=== PATIENT | female | born 1935 | race Caucasian/White ===

== ENCOUNTER 2020-03-04 13:22 | Outpatient (REF) | payer MEDICARE, SELFPAY ==
--- NOTE | 2020-03-04 | MM_ITS ---
EXAMINATION: MM SCREENING DIGITAL BREAST TOMOSYNTHESIS, LEFT CLINICAL INFORMATION: Remote history right mastectomy for breast cancer 1998. Due for yearly. COMPARISON: Mammography: 02/10/2019, 02/04/2018, 02/02/2017 TECHNIQUE: Digital breast tomosynthesis is performed in both the craniocaudal and mediolateral oblique views along with computer-aided detection (CAD). Synthesized 2D images are generated from the tomosynthesis. FINDINGS: There are scattered areas of fibroglandular density (ACR BI-RADS breast composition Category b). There are no significant masses, abnormal calcifications, or other abnormalities. There is no interval mass or architectural abnormality. No developing density or abnormal calcifications. No significant changes from prior studies. MM/MM tomosynthesis screening LT IMPRESSION: No mammographic evidence of malignancy. ASSESSMENT: BI-RADS 1: Negative RECOMMENDATION: Routine annual mammography screening. This patient's information was entered into a reminder system with a target due date for their next mammogram.
== END 2020-03-04 13:23 | disposition home or self-care (01) ==
LOC: HO.MAMMO 13:22
PROVIDERS: PCP Internal Medicine; Visit Provider Internal Medicine
DX: Z12.31 Encounter for screening mammogram for malignant neoplasm of breast (principal)
CPT/HCPCS: 77067

== ENCOUNTER 2020-03-08 08:09 | Outpatient (REF) | payer MEDICARE, SELFPAY ==
[2020-03-08 08:56] LABS: MANUAL DIFF FLAG NO
[2020-03-08 09:07] LABS: Basophils Percent Auto 0.5 % (0-2); Eosinophils Absolute Auto 0.1 X10*3/uL (0.0-0.4); Eosinophils Percent Auto 0.8 % (0-4); Hematocrit 44.5 % (37-47); Imm Gran Abs Auto 0.02 X10*3/uL (0.00-0.03); Imm Gran Pct Auto 0.3 % (0.0-0.4); Lymphocytes Absolute Auto 1.7 X10*3/uL (1.2-4.9); Lymphocytes Percent Auto 26.3 % (20-40); Mean Corpuscular HGB Conc 33.7 g/dl (31.0-35.0); Mean Corpuscular Volume 94.9 fL (80-98); Mean Platelet Volume 9.5 fL (9.4-12.3); Monocytes Absolute Auto 0.5 X10*3/uL (0.1-1.2); Monocytes Percent Auto 7.4 % (2-11); Neutrophils Absolute Auto 4.3 X10*3/uL (2.0-8.3); Neutrophils Percent Auto 64.7 % (45-73); Platelet Count 337 X10*3/uL (160-400); Red Blood Count 4.69 X10*6/uL (4.20-5.50); Red Cell Distribution Width 12.7 % (11.0-16.0); White Blood Count 6.6 X10*3/uL (4.8-10.8)
[2020-03-08 09:41] LABS: Alanine Aminotransferase 13 U/L (0-31); Albumin Level 4.4 g/dL (3.5-5.0); Alkaline Phosphatase 60 U/L (39-117); Anion Gap 11 (12-20); Aspartate Amino Transferase 17 U/L (5-31); Bilirubin Total 0.6 mg/dL (0.0-1.0); Blood Urea Nitrogen 7 mg/dL (9-16); Calcium 8.9 mg/dL (8.4-10.2); Carbon Dioxide 29 mmol/L (22-29); Chloride 98 mmol/L (96-108); Cholesterol 161 mg/dL; Estimated Glomerular Filt Rate > 60; Glucose Random 101 mg/dL (60-115); HDL Cholesterol 59 mg/dL; LDL Cholesterol Calculated 86 mg/dl; Potassium 4.5 mmol/l (3.3-5.1); Sodium 133 mmol/L (135-145); Total Protein 7.1 g/dL (6.5-8.0); Triglycerides 83 mg/dL
== END 2020-03-08 08:10 | disposition home or self-care (01) ==
LOC: HO.LAB 08:09
PROVIDERS: PCP Internal Medicine; Visit Provider Internal Medicine
DX: E78.00 Pure hypercholesterolemia, unspecified (principal); I10 Essential (primary) hypertension
CPT/HCPCS: 36415; 80053; 80061; 85025

== ENCOUNTER 2020-08-17 10:14 | Outpatient (REF) | payer MEDICARE, SELFPAY ==
[2020-08-17 11:22] LABS: MANUAL DIFF FLAG NO
[2020-08-17 11:54] LABS: Basophils Percent Auto 0.4 % (0-2); Eosinophils Percent Auto 0.2 % (0-4); Hematocrit 43.4 % (37-47); Hemoglobin 14.7 g/dl (12.0-16.0); Imm Gran Abs Auto 0.02 X10*3/uL (0.00-0.03); Imm Gran Pct Auto 0.2 % (0.0-0.4); Lymphocytes Absolute Auto 1.6 X10*3/uL (1.2-4.9); Lymphocytes Percent Auto 19.3 % (20-40); Mean Corpuscular HGB Conc 33.9 g/dl (31.0-35.0); Mean Corpuscular Volume 94.3 fL (80-98); Mean Platelet Volume 9.6 fL (9.4-12.3); Monocytes Absolute Auto 0.5 X10*3/uL (0.1-1.2); Monocytes Percent Auto 6.1 % (2-11); Neutrophils Absolute Auto 6.1 X10*3/uL (2.0-8.3); Neutrophils Percent Auto 73.8 % (45-73); Platelet Count 329 X10*3/uL (160-400); White Blood Count 8.2 X10*3/uL (4.8-10.8)
[2020-08-17 12:18] LABS: Alanine Aminotransferase 13 U/L (0-31); Albumin Level 4.3 g/dL (3.5-5.0); Alkaline Phosphatase 56 U/L (39-117); Anion Gap 12 (12-20); Aspartate Amino Transferase 18 U/L (5-31); Bilirubin Total 0.8 mg/dL (0.0-1.0); Blood Urea Nitrogen 8 mg/dL (9-16); Calcium 9.2 mg/dL (8.4-10.2); Carbon Dioxide 25 mmol/L (22-29); Chloride 101 mmol/L (96-108); Cholesterol 149 mg/dL; Estimated Glomerular Filt Rate > 60; Glucose Random 97 mg/dL (60-115); HDL Cholesterol 60 mg/dL; LDL Cholesterol Calculated 77 mg/dl; Potassium 4.3 mmol/L (3.3-5.1); Sodium 134 mmol/L (135-145); Total Protein 6.8 g/dL (6.5-8.0); Triglycerides 60 mg/dL
== END 2020-08-17 10:15 | disposition home or self-care (01) ==
LOC: HO.LAB 10:14
PROVIDERS: PCP Internal Medicine; Visit Provider Internal Medicine
DX: E78.00 Pure hypercholesterolemia, unspecified (principal); I10 Essential (primary) hypertension; Z85.3 Personal history of malignant neoplasm of breast; Z86.010 Personal history of colon polyps
CPT/HCPCS: 36415; 80053; 80061; 85025

== ENCOUNTER 2021-03-07 11:44 | Outpatient (REF) | payer MEDICARE, SELFPAY ==
--- NOTE | ~2021-03-07 | MM_ITS ---
EXAMINATION: MM SCREENING DIGITAL BREAST TOMOSYNTHESIS, LEFT CLINICAL INFORMATION: Due for yearly. Prior history remote right mastectomy for breast cancer, 1998. COMPARISON: Mammography: 03/04/2020, 02/10/2019, 02/04/2018 TECHNIQUE: Digital breast tomosynthesis is performed in both the craniocaudal and mediolateral oblique views along with computer-aided detection (CAD). Synthesized 2D images are generated from the tomosynthesis. FINDINGS: There are scattered areas of fibroglandular density (ACR BI-RADS breast composition Category b). There are no significant masses, abnormal calcifications, or other abnormalities. Parenchymal pattern is similar to prior exams. There is a small oval circumscribed nodule again seen periareolar 3:00 left breast. No developing density. Skin contours are smooth. MM/MM tomosynthesis screening LT IMPRESSION: No mammographic evidence of malignancy. ASSESSMENT: BI-RADS 2: Benign RECOMMENDATION: Routine annual mammography screening. This patient's information was entered into a reminder system with a target due date for their next mammogram.
== END 2021-03-07 11:45 | disposition home or self-care (01) ==
LOC: HO.MAMMO 11:44
PROVIDERS: Visit Provider Internal Medicine
DX: Z12.31 Encounter for screening mammogram for malignant neoplasm of breast (principal)
CPT/HCPCS: 77063; 77067

== ENCOUNTER 2021-03-17 11:02 | Outpatient (REF) | payer MEDICARE, SELFPAY ==
[2021-03-17 11:29] LABS: MANUAL DIFF FLAG NO
[2021-03-17 11:55] LABS: Basophils Percent Auto 0.4 % (0-2); Eosinophils Percent Auto 0.4 % (0-4); Hematocrit 43.9 % (37.0-47.0); Hemoglobin 14.8 g/dl (12.0-16.0); Imm Gran Abs Auto 0.02 X10*3/uL (0.00-0.03); Imm Gran Pct Auto 0.3 % (0.0-0.4); Lymphocytes Absolute Auto 1.8 X10*3/uL (1.2-4.9); Mean Corpuscular HGB Conc 33.7 g/dl (31.0-35.0); Mean Corpuscular Hemoglobin 32.2 pg (27.0-33.0); Mean Corpuscular Volume 95.4 fL (80.0-98.0); Mean Platelet Volume 9.8 fL (9.4-12.3); Monocytes Absolute Auto 0.5 X10*3/uL (0.1-1.2); Neutrophils Absolute Auto 5.2 x10*3/uL (2.0-8.3); Neutrophils Percent Auto 67.9 % (45-73); Platelet Count 294 X10*3/uL (160-400); Red Cell Distribution Width 12.9 % (11.0-16.0); White Blood Count 7.6 X10*3/uL (4.8-10.8)
[2021-03-17 12:40] LABS: Alanine Aminotransferase 11 U/L (0-31); Albumin Level 4.3 g/dL (3.5-5.0); Alkaline Phosphatase 57 U/L (39-117); Anion Gap 11 (12-20); Aspartate Amino Transferase 17 U/L (5-31); Bilirubin Total 0.8 mg/dL (0.0-1.0); Blood Urea Nitrogen 10 mg/dL (9-16); Calcium 9.4 mg/dL (8.4-10.2); Carbon Dioxide 25 mmol/L (22-29); Chloride 101 mmol/L (96-108); Cholesterol 164 mg/dL; Estimated Glomerular Filt Rate > 60; Glucose Random 97 mg/dL (60-115); HDL Cholesterol 59 mg/dL; LDL Cholesterol Calculated 91 mg/dl; Potassium 4.3 mmol/L (3.3-5.1); Sodium 133 mmol/L (135-145); Total Protein 7.2 g/dL (6.5-8.0); Triglycerides 74 mg/dL
== END 2021-03-17 11:03 | disposition home or self-care (01) ==
LOC: HO.LAB 11:02
PROVIDERS: PCP Internal Medicine; Visit Provider Internal Medicine
DX: E78.00 Pure hypercholesterolemia, unspecified (principal); I10 Essential (primary) hypertension; Z85.3 Personal history of malignant neoplasm of breast; Z86.010 Personal history of colon polyps
CPT/HCPCS: 36415; 80053; 80061; 85025

== ENCOUNTER → 2021-05-31 09:59 | Outpatient (BNVA) | payer MEDICARE, SELFPAY | DX: N32.81 Overactive bladder (principal) | CPT/HCPCS: 51798; 99202 ==

== ENCOUNTER 2021-06-13 10:07 | Outpatient (REF) | payer MEDICARE, SELFPAY ==
[2021-06-13 10:30] LABS: MANUAL DIFF FLAG NO
[2021-06-13 11:07] LABS: Basophils Absolute Auto 0.1 X10*3/uL (0.0-0.2); Basophils Percent Auto 0.6 % (0-2); Eosinophils Absolute Auto 0.1 X10*3/uL (0.0-0.4); Eosinophils Percent Auto 0.9 % (0-4); Hematocrit 41.2 % (37.0-47.0); Hemoglobin 13.9 g/dl (12.0-16.0); Imm Gran Abs Auto 0.03 X10*3/uL (0.00-0.03); Imm Gran Pct Auto 0.3 % (0.0-0.4); Lymphocytes Absolute Auto 1.4 X10*3/uL (1.2-4.9); Lymphocytes Percent Auto 15.1 % (20-40); Mean Corpuscular HGB Conc 33.7 g/dl (31.0-35.0); Mean Corpuscular Hemoglobin 31.9 pg (27.0-33.0); Mean Corpuscular Volume 94.5 fL (80.0-98.0); Mean Platelet Volume 9.6 fL (9.4-12.3); Monocytes Absolute Auto 0.7 X10*3/uL (0.1-1.2); Monocytes Percent Auto 7.8 % (2-11); Neutrophils Absolute Auto 6.8 x10*3/uL (2.0-8.3); Neutrophils Percent Auto 75.3 % (45-73); Platelet Count 341 X10*3/uL (160-400); Red Blood Count 4.36 X10*6/uL (4.20-5.50); Red Cell Distribution Width 12.8 % (11.0-16.0)
[2021-06-13 12:21] LABS: Alanine Aminotransferase 20 U/L (0-31); Albumin Level 4.4 g/dL (3.5-5.0); Alkaline Phosphatase 69 U/L (39-117); Anion Gap 12 (12-20); Aspartate Amino Transferase 21 U/L (5-31); Bilirubin Total 0.5 mg/dL (0.0-1.0); Blood Urea Nitrogen 8 mg/dL (9-16); Calcium 9.8 mg/dL (8.4-10.2); Carbon Dioxide 26 mmol/L (22-29); Chloride 99 mmol/L (96-108); Cholesterol 163 mg/dL; Estimated Glomerular Filt Rate > 60; Glucose Random 97 mg/dL (60-115); HDL Cholesterol 63 mg/dL; LDL Cholesterol Calculated 88 mg/dl; Potassium 4.4 mmol/L (3.3-5.1); Sodium 133 mmol/L (135-145); Total Protein 6.9 g/dL (6.5-8.0); Triglycerides 62 mg/dL
== END 2021-06-13 10:08 | disposition home or self-care (01) ==
LOC: HO.LAB 10:07
PROVIDERS: PCP Internal Medicine; Visit Provider Internal Medicine
DX: E78.00 Pure hypercholesterolemia, unspecified (principal); I10 Essential (primary) hypertension; Z85.3 Personal history of malignant neoplasm of breast; Z86.010 Personal history of colon polyps
CPT/HCPCS: 36415; 80053; 80061; 85025

== ENCOUNTER 2021-07-04 18:57 | Emergency (ER) | payer MEDICARE, SELFPAY | END 2021-07-04 20:12 | disposition left against medical advice (07) | PROVIDERS: Emergency Provider Emergency Medicine; PCP Internal Medicine | DX: H57.11 Ocular pain, right eye (principal) ==

== ENCOUNTER 2021-10-10 09:55 | Outpatient (REF) | payer MEDICARE, SELFPAY ==
[2021-10-10 11:57] LABS: Alanine Aminotransferase 17 U/L (0-31); Albumin Level 4.3 g/dL (3.5-5.0); Alkaline Phosphatase 78 U/L (39-117); Anion Gap 12 (12-20); Aspartate Amino Transferase 21 U/L (5-31); Bilirubin Total 0.6 mg/dL (0.0-1.0); Blood Urea Nitrogen 8 mg/dL (9-16); Carbon Dioxide 26 mmol/L (22-29); Chloride 94 mmol/L (96-108); Estimated Glomerular Filt Rate > 60; Glucose Random 91 mg/dL (60-115); Sodium 128 mmol/L (135-145)
[2021-10-10 12:18] LABS: Vitamin B12 > 2000 pg/mL (200-900)
[2021-10-10 12:19] LABS: Thyroid Stimulating Hormone 1.02 uIU/mL (0.32-4.0); Vitamin D 25-OH Total 17.6 ng/mL (>30)
== END 2021-10-10 09:56 | disposition home or self-care (01) ==
LOC: HO.LAB 09:55
PROVIDERS: PCP Internal Medicine; Visit Provider Internal Medicine
DX: E87.1 Hypo-osmolality and hyponatremia (principal); M54.50 Low back pain, unspecified; S22.089G Unspecified fracture of T11-T12 vertebra, subsequent encounter for fracture with delayed healing; I10 Essential (primary) hypertension
CPT/HCPCS: 36415; 80053; 82306; 82607; 84443

== ENCOUNTER 2022-01-10 09:45 | Outpatient (REF) | payer MEDICARE, SELFPAY ==
[2022-01-10 11:29] LABS: Alanine Aminotransferase 18 U/L (0-31); Albumin Level 4.2 g/dL (3.5-5.0); Alkaline Phosphatase 67 U/L (39-117); Anion Gap 12 (12-20); Aspartate Amino Transferase 19 U/L (5-31); Bilirubin Total 0.8 mg/dL (0.0-1.0); Blood Urea Nitrogen 12 mg/dL (9-16); Calcium 9.2 mg/dL (8.4-10.2); Carbon Dioxide 25 mmol/L (22-29); Chloride 95 mmol/L (96-108); Estimated Glomerular Filt Rate > 60; Glucose Random 91 mg/dL (60-115); Potassium 4.3 mmol/L (3.3-5.1); Sodium 128 mmol/L (135-145); Total Protein 6.6 g/dL (6.5-8.0)
== END 2022-01-10 09:46 | disposition home or self-care (01) ==
LOC: HO.10HDL 09:45
PROVIDERS: Visit Provider Internal Medicine
DX: I10 Essential (primary) hypertension (principal)
CPT/HCPCS: 36415; 80053

== ENCOUNTER 2022-03-08 12:04 | Outpatient (REF) | payer MEDICARE, SELFPAY ==
--- NOTE | ~2022-03-08 | MM_ITS ---
EXAMINATION: MM SCREENING DIGITAL BREAST TOMOSYNTHESIS, LEFT CLINICAL INFORMATION: Due for yearly. Prior remote right mastectomy for breast cancer, 1998. COMPARISON: Mammography: 03/07/2021, 03/04/2020 02/10/2019, 02/04/2018 02/02/2017, 01/31/2016, 01/25/2015 TECHNIQUE: Digital breast tomosynthesis is performed in both the craniocaudal and mediolateral oblique views along with computer-aided detection (CAD). Synthesized 2D images are generated from the tomosynthesis. Images of the contralateral right mastectomy side were also included. FINDINGS: There are scattered areas of fibroglandular density (ACR BI-RADS breast composition Category b). The left MLO view has nodular asymmetric density anterior upper breast possibly shifting fibroglandular tissue or incompletely compressed fibroglandular tissue. Patient will be recalled for additional imaging. The remainder of the left breast is unremarkable with no developing density or architectural abnormality or abnormal calcifications. The axilla is unremarkable. Additional images obtained right mastectomy site are unremarkable. MM/MM tomosynthesis screening LT IMPRESSION: -Nodular asymmetric density anterior upper breast on MLO view, possibly summation artifact. ASSESSMENT: BI-RADS 0: Incomplete - Need Additional Imaging Evaluation RECOMMENDATION: 1. Additional views of the left breast (spot MLO, spot ML). 2. Targeted ultrasound if warranted after review of the additional views. 3. Radiology department staff will contact the patient for additional imaging. This patient's information was entered into a reminder system with a target due date for their next mammogram.
== END 2022-03-08 12:05 | disposition home or self-care (01) ==
LOC: HO.MAMMO 12:04
PROVIDERS: PCP Internal Medicine; Visit Provider Internal Medicine
DX: Z12.31 Encounter for screening mammogram for malignant neoplasm of breast (principal)
CPT/HCPCS: 77063; 77067

== ENCOUNTER 2022-03-29 14:53 | Outpatient (REF) | payer MEDICARE, SELFPAY ==
--- NOTE | ~2022-03-29 | MM_ITS ---
EXAMINATION: MM DIAGNOSTIC DIGITAL BREAST TOMOSYNTHESIS, LEFT TARGETED LEFT BREAST ULTRASOUND CLINICAL INFORMATION: Status post right breast lumpectomy. Additional views for nodule asymmetric density anterior upper breast on mediolateral oblique view. COMPARISON: Mammography: 03/08/2022 and studies dating back to 01/31/2016. TECHNIQUE: Digital breast tomosynthesis is performed. 2D images are generated from the tomosynthesis. The following views are obtained: Spot compression mediolateral oblique and 90 degree mediolateral view. TARGETED LEFT BREAST ULTRASOUND: FINDINGS: There are scattered areas of fibroglandular density (ACR BI-RADS breast composition Category b). Additional views demonstrate one of the more superior and distal densities to have represented superposition of fibroglandular tissue. There is a circumscribed density which appears to have been present previously measuring approximately 7 x 4 mm in size as well as a couple of sub-3 mm circumscribed densities which appear to have been present previously but it is difficult to say for sure. Targeted left breast ultrasound demonstrated at the 3 o'clock position, approximately 2 cm from the nipple, a mixed hypoechoic and hyperechoic 4 x 4 x 2 mm well-circumscribed structure without distal sound shadowing. The lesion is wider than it is tall. No internal vascularity was present. Recommend a six month follow up left breast mammography and ultrasound for continued surveillance. Results are discussed with the patient at time of visit. MM/MM tomosynthesis added views L IMPRESSION: No specific mammographic or ultrasound findings to suggest malignancy. Recommend a six month follow up study. ASSESSMENT: BI-RADS 3: Probably benign. RECOMMENDATION: Diagnostic mammography in 6 months. This patient's information was entered into a reminder system with a target due date for their next mammogram.
== END 2022-03-29 14:54 | disposition home or self-care (01) ==
LOC: HO.MAMMO 14:53
PROVIDERS: Visit Provider Internal Medicine
DX: R92.2 Inconclusive mammogram (principal)
CPT/HCPCS: 76642; 77061; 77065

== ENCOUNTER 2022-04-24 15:11 | Outpatient (REF) | payer MEDICARE, SELFPAY ==
[2022-04-24 15:25] LABS: MANUAL DIFF FLAG NO
[2022-04-24 15:33] LABS: Basophils Percent Auto 0.4 % (0-2); Hematocrit 40.1 % (37.0-47.0); Hemoglobin 14.1 g/dl (12.0-16.0); Imm Gran Abs Auto 0.03 X10*3/uL (0.00-0.03); Imm Gran Pct Auto 0.3 % (0.0-0.4); Lymphocytes Absolute Auto 1.4 X10*3/uL (1.2-4.9); Lymphocytes Percent Auto 13.3 % (20-40); Mean Corpuscular HGB Conc 35.2 g/dl (31.0-35.0); Mean Corpuscular Hemoglobin 32.7 pg (27.0-33.0); Mean Platelet Volume 9.5 fL (9.4-12.3); Monocytes Absolute Auto 0.6 X10*3/uL (0.1-1.2); Monocytes Percent Auto 5.3 % (2-11); Neutrophils Absolute Auto 8.7 x10*3/uL (2.0-8.3); Neutrophils Percent Auto 80.7 % (45-73); Platelet Count 331 X10*3/uL (160-400); Red Blood Count 4.31 X10*6/uL (4.20-5.50); Red Cell Distribution Width 13.1 % (11.0-16.0); White Blood Count 10.7 X10*3/uL (4.8-10.8)
[2022-04-24 16:13] LABS: Alanine Aminotransferase 12 U/L (0-31); Albumin Level 4.4 g/dL (3.5-5.0); Alkaline Phosphatase 64 U/L (39-117); Anion Gap 14 (12-20); Aspartate Amino Transferase 16 U/L (5-31); Bilirubin Total 0.9 mg/dL (0.0-1.0); Blood Urea Nitrogen 11 mg/dL (9-16); Calcium 9.3 mg/dL (8.4-10.2); Carbon Dioxide 21 mmol/L (22-29); Chloride 97 mmol/L (96-108); Cholesterol 169 mg/dL; Estimated Glomerular Filt Rate > 60; Glucose Random 125 mg/dL (60-115); HDL Cholesterol 56 mg/dL; LDL Cholesterol Calculated 97 mg/dl; Sodium 128 mmol/L (135-145); Total Protein 6.8 g/dL (6.5-8.0); Triglycerides 80 mg/dL
[2022-04-24 16:28] LABS: Thyroid Stimulating Hormone 0.95 uIU/mL (0.32-4.0)
== END 2022-04-24 15:12 | disposition home or self-care (01) ==
LOC: HO.LAB 15:11
PROVIDERS: PCP Internal Medicine; Visit Provider Internal Medicine
DX: E55.9 Vitamin D deficiency, unspecified (principal); E87.1 Hypo-osmolality and hyponatremia; I10 Essential (primary) hypertension
CPT/HCPCS: 36415; 80053; 80061; 82306; 84443; 85025

== ENCOUNTER 2022-05-01 16:43 | Outpatient (REF) | payer MEDICARE, SELFPAY ==
--- NOTE | ~2022-05-01 | XR_ITS ---
EXAMINATION: XR HIP, LEFT CLINICAL INFORMATION: Left hip pain COMPARISON: None TECHNIQUE: Two views of the left hip. FINDINGS: Mild to moderate degenerative changes of the left hip joint with joint space narrowing and tiny osteophytes. No acute fracture or dislocation. 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
--- NOTE | ~2022-05-01 | XR_ITS ---
EXAMINATION: XR chest 2V CLINICAL INFORMATION: Reason for Exam hyponatremia COMPARISON: Chest radiograph 04/30/2006 TECHNIQUE: 2 views of the chest FINDINGS: Clear lungs. No pneumothorax or pleural effusion. Unchanged cardiomediastinal silhouette. Mediastinal clips. XR/XR chest 2V Impression: No acute cardiopulmonary findings.
== END 2022-05-01 16:44 | disposition home or self-care (01) ==
LOC: HO.XRAY 16:43
PROVIDERS: PCP Internal Medicine; Visit Provider Internal Medicine
DX: E87.1 Hypo-osmolality and hyponatremia (principal); M25.512 Pain in left shoulder; Z85.3 Personal history of malignant neoplasm of breast
CPT/HCPCS: 71046; 73502

== ENCOUNTER 2022-06-02 14:46 | Outpatient (REF) | payer MEDICARE, SELFPAY | END 2022-06-02 14:47 | disposition home or self-care (01) | LOC: HO.LNP 14:46 | PROVIDERS: PCP Internal Medicine; Visit Provider Nurse Practitioner Family | DX: N32.81 Overactive bladder (principal); R33.9 Retention of urine, unspecified | CPT/HCPCS: 51798; 87086; 87088; 87186; 99212 ==

== ENCOUNTER 2022-06-15 14:06 | Outpatient (REF) | payer MEDICARE, SELFPAY ==
--- NOTE | ~2022-06-15 | US_ITS ---
EXAMINATION: US RETROPERITONEAL COMPLETE (RENAL) CLINICAL INFORMATION: Overactive bladder. COMPARISON: None available. TECHNIQUE: Real-time imaging of the kidneys and bladder. FINDINGS: RIGHT KIDNEY: 10.1 x 3.2 x 4.5 cm (SAG x AP x TRV). The kidney is normal in size, contour, and echogenicity. Renal cortical thickness is normal. No calculi or focal parenchymal lesions. No hydronephrosis. LEFT KIDNEY: 10.5 x 4.4 x 3.7 cm (SAG x AP x TRV). The kidney is normal in size, contour, and echogenicity. Renal cortical thickness is normal. No calculi or focal parenchymal lesions. No hydronephrosis. BLADDER: Bladder was well distended with minimal trabeculation suggested. Bilateral ureteral jets are not demonstrated. Prevoid bladder volume is 323 mL. Postvoid bladder volume is 184 mL. US/US retroperitoneal comp IMPRESSION: Large postvoid residual. Normal-appearing kidneys.
== END 2022-06-15 14:07 | disposition home or self-care (01) ==
LOC: HO.US 14:06
PROVIDERS: PCP Internal Medicine; Visit Provider Nurse Practitioner Family
DX: N32.81 Overactive bladder (principal); R33.9 Retention of urine, unspecified
CPT/HCPCS: 76770

== ENCOUNTER 2022-07-17 14:34 | Outpatient (REF) | payer MEDICARE, SELFPAY ==
[2022-07-17 15:56] LABS: Alanine Aminotransferase 11 U/L (0-31); Albumin Level 4.1 g/dL (3.5-5.0); Alkaline Phosphatase 93 U/L (39-117); Anion Gap 12 (12-20); Aspartate Amino Transferase 16 U/L (5-31); Bilirubin Total 0.5 mg/dL (0.0-1.0); Blood Urea Nitrogen 16 mg/dL (9-16); Calcium 9.1 mg/dL (8.4-10.2); Carbon Dioxide 28 mmol/L (22-29); Chloride 97 mmol/L (96-108); Estimated Glomerular Filt Rate > 60; Glucose Random 84 mg/dL (60-115); Potassium 4.6 mmol/L (3.3-5.1); Sodium 132 mmol/L (135-145); Total Protein 6.5 g/dL (6.5-8.0)
== END 2022-07-17 14:35 | disposition home or self-care (01) ==
LOC: HO.LAB 14:34
PROVIDERS: PCP Internal Medicine; Visit Provider Internal Medicine
DX: Z00.01 Encounter for general adult medical examination with abnormal findings (principal); E87.1 Hypo-osmolality and hyponatremia; I10 Essential (primary) hypertension; M25.552 Pain in left hip
CPT/HCPCS: 36415; 80053

== ENCOUNTER 2022-10-03 15:40 | Outpatient (REF) | payer MEDICARE, SELFPAY ==
[2022-10-03 15:51] LABS: MANUAL DIFF FLAG NO
[2022-10-03 17:59] LABS: Basophils Absolute Auto 0.1 X10*3/uL (0.0-0.2); Basophils Percent Auto 0.5 % (0-2); Eosinophils Absolute Auto 0.1 X10*3/uL (0.0-0.4); Eosinophils Percent Auto 0.7 % (0-4); Hematocrit 39.7 % (37.0-47.0); Hemoglobin 13.5 g/dl (12.0-16.0); Imm Gran Abs Auto 0.03 X10*3/uL (0.00-0.03); Imm Gran Pct Auto 0.3 % (0.0-0.4); Lymphocytes Absolute Auto 2.3 X10*3/uL (1.2-4.9); Lymphocytes Percent Auto 23.8 % (20-40); Mean Corpuscular Hemoglobin 33.3 pg (27.0-33.0); Mean Platelet Volume 10.4 fL (9.4-12.3); Monocytes Absolute Auto 0.9 X10*3/uL (0.1-1.2); Monocytes Percent Auto 9.6 % (2-11); Neutrophils Absolute Auto 6.2 x10*3/uL (2.0-8.3); Neutrophils Percent Auto 65.1 % (45-73); Platelet Count 343 X10*3/uL (160-400); Red Blood Count 4.05 X10*6/uL (4.20-5.50); Red Cell Distribution Width 12.7 % (11.0-16.0); White Blood Count 9.5 X10*3/uL (4.8-10.8)
[2022-10-03 18:29] LABS: Alanine Aminotransferase 13 U/L (0-31); Albumin Level 4.2 g/dL (3.5-5.0); Alkaline Phosphatase 73 U/L (39-117); Anion Gap 14 (12-20); Aspartate Amino Transferase 19 U/L (5-31); Bilirubin Total 0.4 mg/dL (0.0-1.0); Blood Urea Nitrogen 14 mg/dL (9-16); Calcium 9.4 mg/dL (8.4-10.2); Carbon Dioxide 24 mmol/L (22-29); Chloride 98 mmol/L (96-108); Estimated Glomerular Filt Rate > 60; Glucose Random 95 mg/dL (60-115); Sodium 132 mmol/L (135-145); Total Protein 7.2 g/dL (6.5-8.0)
[2022-10-03 18:44] LABS: Thyroid Stimulating Hormone 1.28 uIU/mL (0.32-4.0)
[2022-10-03 19:19] LABS: Vitamin B12 > 2000 pg/mL (200-900)
== END 2022-10-03 15:41 | disposition home or self-care (01) ==
LOC: HO.LAB 15:40
PROVIDERS: PCP Internal Medicine; Visit Provider Internal Medicine
DX: E87.1 Hypo-osmolality and hyponatremia (principal); F32.9 Major depressive disorder, single episode, unspecified; L03.032 Cellulitis of left toe; R23.3 Spontaneous ecchymoses
CPT/HCPCS: 36415; 80053; 82607; 82746; 84443; 85025

== ENCOUNTER 2022-11-21 14:24 | Outpatient (REF) | payer MEDICARE, SELFPAY ==
--- NOTE | ~2022-11-21 | MM_ITS ---
EXAMINATION: MM DIAGNOSTIC DIGITAL BREAST TOMOSYNTHESIS, LEFT US BREAST LIMITED, LEFT MAMMOGRAPHY: CLINICAL INFORMATION: 6 month follow-up mammography and ultrasound for probably benign complicated cyst left breast approximately 3:00 axis, 2 cm from the nipple. The patient has undergone prior mastectomy right breast with TRAM flap repair. COMPARISON: Mammography: Mammography dated 03/29/2022, 03/08/2022, and 03/07/2021. Ultrasound dated 03/29/2022. TECHNIQUE: Digital LEFT breast tomosynthesis is performed in both the craniocaudal and mediolateral oblique views along with computer-aided detection (CAD). Synthesized 2D images are generated from the tomosynthesis. FINDINGS: There are scattered areas of fibroglandular density (ACR BI-RADS breast composition Category b). The previously seen focal asymmetry/circumscribed oval nodule at the 3:00 position within the left breast, mid to anterior depth, is no longer visualized on today's examination. There are mild left breast vascular calcifications. There are no suspicious calcifications. There are no masses or developing regions of architectural distortion. The parenchymal pattern is unchanged from prior exams. ULTRASOUND: CLINICAL INFORMATION: Follow-up complicated cyst left breast 3:00 axis, 2 cm from the nipple. COMPARISON: Ultrasound dated 03/29/2022 left breast. TECHNIQUE: Targeted sonographic evaluation was performed using a high frequency linear transducer. Attention was given specifically to the lateral left breast. Selected archived documentation. FINDINGS: LEFT BREAST: The previously seen 4 mm somewhat superficial oval complicated cyst versus mass in the left breast at the 3:00 axis, 2 cm from the nipple, is no longer definitively seen. It appears to have resolved. At the same region, somewhat deeper within dense Petey's ligaments is a probable dirty cyst measuring 2 x 2 x 3 mm, also probably benign. Recommend six-month interval follow-up targeted left breast ultrasound in the lateral region to ensure stability. MM/MM tomosynthesis diagnostic LT IMPRESSION: 1. Previously seen oval nodule 3:00 position left breast appears to have resolved. 2. Visualization of a slightly deeper 2 x 3 x 2 mm nodule at 3:00 position left breast, 2 cm from the nipple, probably benign. Six-month interval follow-up targeted left breast ultrasound recommended as discussed above, in March when she is due for yearly lateral left screening. 3. No findings suspicious for malignancy in either breast. OVERALL ASSESSMENT: Mammography: BI-RADS 3 - Probably benign finding(s) - 6 month follow-up suggested Ultrasound: BI-RADS 3 - Probably benign finding(s) - 6 month follow-up suggested RECOMMENDATION: 6 Month F/U Results were provided to the patient at time of visit by the technologist. This patient's information was entered into a reminder system with a target due date for their next mammogram.
== END 2022-11-21 14:25 | disposition home or self-care (01) ==
LOC: HO.MAMMO 14:24
PROVIDERS: PCP Internal Medicine; Visit Provider Internal Medicine
DX: R92.2 Inconclusive mammogram (principal)
CPT/HCPCS: 76642; 77061; 77065

== ENCOUNTER → 2022-11-21 15:00 | Outpatient (BNV) | payer MEDICARE, SELFPAY | PROVIDERS: PCP Internal Medicine; Visit Provider Radiology Diagnostic Radiology | DX: R92.2 Inconclusive mammogram (principal) | CPT/HCPCS: 76642; 77061; 77065 ==

== ENCOUNTER 2023-01-12 12:01 | Emergency (ER) | payer MEDICARE, SELFPAY ==
--- NOTE | ~2023-01-12 | XR_ITS ---
EXAMINATION: XR RIBS, LEFT CLINICAL INFORMATION: Fall. Pain. COMPARISON: None available. TECHNIQUE: Frontal view of chest 3 views of the left ribs were obtained. FINDINGS: Lungs are clear. No consolidation, pneumothorax, or pleural effusion. The cardiomediastinal silhouette and pulmonary vasculature are normal. Old healed fracture with residual deformity of the posterior left seventh and eighth ribs. No acute displaced fracture. XR/XR ribs LT min 3V w CXR1V IMPRESSION: 1. No acute abnormality of chest. 2. Old healed fracture of the posterior left seventh and eighth ribs.
--- NOTE | ~2023-01-12 | XR_ITS ---
EXAMINATION: XR THORACIC SPINE CLINICAL INFORMATION: Tenderness after fall COMPARISON: None available. TECHNIQUE: 3 views of the thoracic spine were obtained. FINDINGS: Diffuse demineralization. S-shaped thoracolumbar scoliosis. Mild kyphosis. Multilevel degenerative changes. Severe compression deformity, likely L1. Left base atelectasis. Aortic calcifications. XR/XR thoracic spine 3V IMPRESSION: Severe compression fracture, likely L1. Correlate with point tenderness.
--- NOTE | ~2023-01-12 | XR_ITS ---
EXAMINATION: XR LUMBOSACRAL SPINE CLINICAL INFORMATION: Fall. COMPARISON: Thoracic spine x-ray from the same day TECHNIQUE: Three views of the lumbosacral spine. FINDINGS: There is curvature of the lower thoracic and upper lumbar spine to the left and lumbar sacral spine to the right. There is a severe compression fraction of the superior endplate of the L1 vertebral body that appears recent. No other fracture. There may be mild disc space narrowing at T12-L1. Disc spaces are otherwise normal. Lower lumbar spine facet arthritis. Atherosclerotic. XR/XR lumbar spine 2-3V IMPRESSION: Recent appearing L1 vertebral body compression fracture. Scoliosis and degenerative changes.
[2023-01-12 12:12] VITALS: BP 150/84; BP 167/87; PULSE 65; PULSE 68; RESP 18; TEMP 36.6; O2SAT 96; O2SAT 98; BMI 29.5
--- NOTE | 2023-01-12 12:41 | ED.GENADULT ---
HPI - General Adult General Chief complaint: Fall Stated complaint: FALL WITH BACK PAIN Time Seen by Provider: 01/12/23 12:38 Source: patient, EMS and RN notes reviewed Mode of arrival: EMS Limitations: no limitations History of Present Illness HPI narrative: Patient is an 87-year-old female presents to the emergency department with complaint of thoracic back pain after a trip and fall earlier today. Patient reports that her she became stuck on the carpet, causing her to fall. States that when she fell her back landed against the corner of a cabinet. She denies head strike or loss of consciousness. States that she 1st called her neighbor who then came over and called 911. She denies any other pain or injuries. She did not take any medications prior to arrival. MD complaint: back pain Onset (ago): hour(s) Location: back Radiation: non-radiation Severity: severe Quality: sharp Pain Consistency: constant Relieving factors: rest Exacerbating factors: movement and other (palpation) Associated symptoms: denies other symptoms Treatments prior to arrival: none Related Data Home Medications Medication Instructions Recorded Confirmed cholecalciferol (vitamin D3) 1,250 1,250 mcg PO QWEEK 06/02/22 01/12/23 mcg (50,000 unit) capsule lidocaine 5 % topical patch 1 patch topical DAILY 06/02/22 01/12/23 metoprolol succinate 25 mg 25 mg PO DAILY 06/02/22 01/12/23 tablet,extended release 24 hr pravastatin 40 mg tablet 40 mg PO DAILY 06/02/22 01/12/23 lisinopril 5 mg tablet 5 mg PO DAILY 01/12/23 01/12/23 sertraline 25 mg tablet 25 mg PO DAILY 01/12/23 01/12/23 Previous Rx's Medication Instructions Recorded oxybutynin chloride 5 mg 5 mg PO DAILY 90 days #90 tabs 05/31/21 tablet,extended release 24 hr Allergies Allergy/AdvReac Type Severity Reaction Status Date / Time No Known Allergies Allergy Verified 01/12/23 12:17 [No Known Allergies*] bee sting Allergy Unknown swelling Uncoded 06/04/22 20:49 Review of Systems Review of Systems: As per HPI Yes all other systems are reviewed and are negative Constitutional: Constitutional: Reports as per HPI PMFSH Past Medical History Medical History OAB (overactive bladder) Social History Social History Smoked in Last 30 Days: No Use of substances other than those prescribed or required for medical reasons: No Advance Directives: No Advance Directives Information Provided: Yes Physical Exam ED Vital Signs: Vital Signs - 24 hr 01/13/23 19:18 01/14/23 05:10 Temperature 98.3 F 98.3 F Pulse Rate 61 92 Respiratory Rate 16 18 Blood Pressure 141/74 H 140/69 H Pulse Oximetry 97 93 Oxygen Delivery Method Room Air Room Air BMI result Body Mass Index 29.5 Vital signs have been reviewed and appear to be correct. Blood pressure elevated. Heart rate normal. Respiratory rate normal. Temperature normal. Oxygen saturation normal. Const General: cooperative, healthy appearing and no acute distress Orientation/consciousness: oriented to person, oriented to place, oriented to time and patient oriented x3 Limitations: no limitations HENMT Head: Yes normocephalic and Yes atraumatic Ears: external ears normal General nose exam: Normal external nose present Face and sinus: Yes face symmetric Mouth: oropharynx normal and moist mucous membranes Throat: Yes uvula midline Eyes Pupils: Equal, round and reactive pupils present Neck Neck: Yes normal visual inspection and Yes supple Resp Effort & Inspection: normal respiratory effort and able to speak in complete sentences Auscultation: clear to auscultation bilaterally Cardio Rate: regular rate Rhythm: regular rhythm Heart sounds: S1 normal heart sound present and S2 normal heart sound present GI Palpation (GI): Soft to palpation and nontender Auscultation: normoactive bowel sounds General: Yes no CVA tenderness Back/Spine/Pelvis Back: no CVA tenderness Cervical Spine: normal cervical lordosis, cervical ROM normal, No cervical muscular tenderness, No pain with cervical ROM, No Cervical spine tenderness and No step off deformity Thoracic/Lumbar Spine: thoracic and lumbar spine normal to inspection (no erythema or ecchymosis), pain with thoraco-lumbar ROM, thoraco-lumbar ROM limited with forward flexion (r/t pain), thoracic spinal tenderness at T10, at T11 and at T12 and No lumbar spinal tenderness Pelvis: no pain with anterior-posterior compression and no pain with lateral compression Skin General skin exam: elasticity normal and turgor normal Neuro General: oriented to person, oriented to place, oriented to time, patient oriented x3, moves all extremities, no focal motor deficits and CN's II-XI intact bilaterally Cranial nerves: Yes Equal, round and reactive pupils present Cognition (Neuro): normal cognition Extrem General: Yes full ROM, Yes no pedal edema and Yes no calf tenderness Psych Mental Status: mental status grossly normal Affect: normal affect Thought process: Normal thought process present Course Course Course Narrative: 01/13/2023 0802: Physician observation continues. Patient being followed by Case Management. Reevaluation(s) Reevaluation #1: No complaints from nursing overnight. Vital signs reviewed and stable. Pending case management input after her physical therapy evaluation yesterday. Will continue physician observation pending disposition. Reevaluation #2: Case management met with patient. Patient will be going home with home services. Medications Administered Generic Name Dose Route Start Last Admin Trade Name Freq PRN Reason Stop Dose Admin Acetaminophen 650 mg 01/14/23 10:26 01/14/23 10:59 Acetaminophen 325 Mg Tablet PO 650 mg QID PRN Administration Pain, Mild (Pain Scale 1-3) Lidocaine 1 patch 01/13/23 09:00 01/14/23 09:41 Lidocaine 4 % Patch Adh..Patch TRANSDERMA 1 patch DAILY CHAPARRITA Administration Lisinopril 5 mg 01/13/23 09:00 01/14/23 09:39 Lisinopril 5 Mg Tablet PO 5 mg DAILY CHAPARRITA Administration Protocol Metoprolol Succinate 25 mg 01/13/23 09:00 01/14/23 09:40 Metoprolol Succinate Er 25 Mg Tab.Er.24h PO 25 mg DAILY CHAPARRITA Administration Protocol Oxybutynin Chloride 5 mg 01/13/23 09:00 01/14/23 09:39 Oxybutynin Chloride Er 5 Mg Tab.Er.24 PO 5 mg DAILY CHAPARRITA Administration Pravastatin Sodium 40 mg 01/13/23 09:00 01/14/23 09:40 Pravastatin Sodium 40 Mg Tablet PO 40 mg DAILY CHAPARRITA Administration Sertraline HCl 25 mg 01/13/23 09:00 01/14/23 09:39 Sertraline Hcl 25 Mg Tablet PO 25 mg DAILY CHAPARRITA Administration Discontinued Medications Generic Name Dose Route Start Last Admin Trade Name Freq PRN Reason Stop Dose Admin Acetaminophen 650 mg 01/12/23 12:45 01/12/23 13:57 Acetaminophen 325 Mg Tablet PO 01/12/23 12:46 650 mg ONCE ONE Administration Acetaminophen 650 mg 01/13/23 06:45 01/13/23 06:48 Acetaminophen 325 Mg Tablet PO 01/13/23 06:46 650 mg ONCE ONE Administration Acetaminophen 650 mg 01/13/23 20:39 01/13/23 21:17 Acetaminophen 325 Mg Tablet PO 01/13/23 20:40 650 mg ONCE ONE Administration Acetaminophen 650 mg 01/14/23 04:44 01/14/23 04:50 Acetaminophen 325 Mg Tablet PO 01/14/23 04:45 650 mg ONCE ONE Administration Benzonatate 200 mg 01/13/23 09:48 01/13/23 10:08 Benzonatate 100 Mg Capsule PO 01/13/23 09:49 200 mg ONCE ONE Administration Ibuprofen 600 mg 01/12/23 15:20 01/12/23 18:17 Ibuprofen 600 Mg Tablet PO 01/12/23 15:21 600 mg ONCE ONE Administration Ibuprofen 600 mg 01/13/23 20:39 01/13/23 21:17 Ibuprofen 600 Mg Tablet PO 01/13/23 20:40 600 mg ONCE ONE Administration Lidocaine 1 patch 01/12/23 20:52 01/12/23 21:25 Lidocaine 4 % Patch Adh..Patch TRANSDERMA 01/12/23 20:53 1 patch ONCE ONE Administration Protocol Oxycodone HCl 2.5 mg 01/12/23 20:52 01/12/23 21:25 Oxycodone Hcl Immed Release 5 Mg Tablet PO 01/12/23 20:53 2.5 mg ONCE ONE Administration Medical Decision Making Medical Decision Making MDM Narrative: Patient is an 87-year-old female presents to the emergency department with complaint of thoracic back pain after a trip and fall earlier today. On exam patient is awake, A+Ox3, VS WNL, afebrile, normal neurological exam without focal deficits, physical exam findings as above. Given reported symptoms and physical exam findings, initial differential includes contusion, vertebral fracture, muscle strain. X-ray thoracic spine notable for severe compression fracture, likely L1. My interpretation is in agreement with the radiologist's interpretation. Son at bedside and reporting that patient has a prior T12 fracture from a previous fall. Will obtain lumbar x-rays for additional evaluation. Patient reports pain has improved after Tylenol but still has some pain, will order ibuprofen. Discussed with patient and son that treatment is symptomatic and pain control. Son in agreement that patient may benefit from short-term rehab, will place PT eval and Case Management consult. Patient signed out to DONNA Sosa pending lumbar x-ray. Differential Diagnosis Differential Diagnoses: The differential diagnosis associated with the presentation includes As per MDM. Admission/Observation Consideration of admission/observation: Escalation of care including admission/observation considered Independent Interpretation I performed an independent interpretation of an: Plain X-Ray Interpretation: Severe compression fracture likely L1 on thoracic x-ray Radiology Impression Discussion of test interpretation with radiology: I have reviewed the radiologist's reading. Radiologist Impression: XR/XR thoracic spine 3V IMPRESSION: Severe compression fracture, likely L1. Correlate with point tenderness. Independent Historian Clinical information obtained from an independent historian. History obtained from or confirmed by: Other (son) External Record Review External record reviewed: Inpatient record, Office record and Outpatient record Prescription Management I considered prescription management with: Pain Medication Discharge Plan Discharge Clinical Impression: Fall, Compression fracture of first lumbar vertebra Patient Disposition: Home, Self-Care Instructions: Vertebral Compression Fracture (ED) Additional Instructions: Case management has set up services to come into your home Please follow-up with primary care doctor Take Tylenol for pain Return for any worsening symptom Prescriptions: No Action sertraline 25 mg tablet 25 mg PO DAILY lisinopril 5 mg tablet 5 mg PO DAILY lidocaine 5 % adhesive patch,medicated 1 patch topical DAILY pravastatin 40 mg tablet 40 mg PO DAILY cholecalciferol (vitamin D3) 1,250 mcg (50,000 unit) capsule 1,250 mcg PO QWEEK metoprolol succinate 25 mg tablet extended release 24 hr 25 mg PO DAILY oxybutynin chloride 5 mg tablet extended release 24 hr 5 mg PO DAILY 90 Days Qty: 90 1RF Referrals: Carlyn Lakhani MD [Primary Care Provider] - 1 week
[2023-01-12] MEDS: Acetaminophen 325 MG TABLET 650 MG PO (13:57)
[2023-01-12 16:00] VITALS: BP 142/70; PULSE 65; RESP 16; TEMP 36.7; O2SAT 100
--- NOTE | 2023-01-12 16:16 | MHC.EDTECH ---
Placed bedpan for patient to void. Took bedpan out for patient. Wiped patient pedi area. Placed a bed pad and gave patient a warm blanket.
[2023-01-12 18:00] VITALS: BP 154/73; PULSE 65; RESP 16; TEMP 36.8; O2SAT 98
[2023-01-12] MEDS: Ibuprofen 600 MG TABLET PO (18:17)
--- NOTE | 2023-01-12 20:38 | PC.NURSE ---
RN received notice from EDT that the pt's daughter/bedside visitor is upset as she did not know about the plan for the pt to remain in the ED overnight for PT/CM follow up s/t fall. This RN consulted with DONNA Bragg to ensure that the plan was still in effect and provided information to the provider regarding the daughter's dissatisfaction at this time. DONNA Bragg to bedside to discuss plan with daughter and patient.
[2023-01-12] MEDS: oxyCODONE HCl Immed Release 5 MG TABLET 2.5 MG PO (21:25)
[2023-01-12] MEDS: Lidocaine 4 % Patch ADH..PATCH 1 PATCH TRANSDERMA (21:25)
[2023-01-12 23:18] VITALS: BP 121/54; PULSE 59; RESP 16; TEMP 36.7; O2SAT 97
--- NOTE | 2023-01-12 23:19 | MHC.EDTECH ---
Patient just came to overflow from the main ed ,Patient got moved to bed ,vitals taken ,patient belonging list done ,This pct offer Pt food and drinks ,pt said she was not hungry ,but would like something to drink ,[place] kavita given ,pure wick in place and bed alarm ,tissue given and small trash bag attach to bedside table ,Also this pct put on red sock on patient ,Call barnard within Pt reach .
--- NOTE | 2023-01-13 02:55 | PC.NURSE ---
Pt sleeping comfortably in bed at this time. Prior, pt denied pain or SOB. Presented A&O with no signs of apparent distress
[2023-01-13 06:00] VITALS: BP 161/83; PULSE 58; RESP 16; TEMP 37; O2SAT 96
--- NOTE | 2023-01-13 06:34 | MHC.EDTECH ---
Pt awake sat up at the side of bed ,was a bit confused ,assist pt back in bed ,vitals taken ,Pt dry ,pure wick in place ,bed alarm on .
[2023-01-13] MEDS: Acetaminophen 325 MG TABLET 650 MG PO ×2 (06:48→21:17)
--- NOTE | 2023-01-13 07:02 | PHA.MEDREC ---
Pharmacy Consult ? Medication Reconciliation Pharmacy has reviewed the medication reconciliation.
[2023-01-13 08:30] VITALS: BP 122/59; PULSE 71; RESP 16; TEMP 36.8; O2SAT 98
[2023-01-13] MEDS: oxyBUTYnin chloride ER 5 MG TAB.ER.24 PO (10:08)
[2023-01-13] MEDS: Sertraline HCL 25 MG TABLET PO (10:08)
[2023-01-13] MEDS: lisinopriL 5 MG TABLET PO (10:08)
[2023-01-13] MEDS: Pravastatin Sodium 40 MG TABLET PO (10:08)
[2023-01-13] MEDS: Benzonatate 100 MG CAPSULE 200 MG PO (10:08)
[2023-01-13] MEDS: Lidocaine 4 % Patch ADH..PATCH 1 PATCH TRANSDERMA (10:08)
[2023-01-13] MEDS: Metoprolol Succinate ER 25 MG TAB.ER.24H PO (10:08)
--- NOTE | 2023-01-13 17:59 | MHC.EDTECH ---
Patient given shower and bed changed
[2023-01-13 19:18] VITALS: BP 141/74; PULSE 61; RESP 16; TEMP 36.8; O2SAT 97
--- NOTE | 2023-01-13 20:55 | PC.NURSE ---
Assumed care of pt at 19:00. A&Ox4, forgetful at times. VSS. Only complaint offered by pt is ongoing pain in her back. Pt requesting tylenol for pain. Covering provider notified with request. Tylenol and ibuprofen ordered. Ibuprofen not stocked in pyxis; medication delivery requested from pharmacy. Pt assisted with repositioning for comfort. Will continue to monitor for remainder of card writer hand's scheduled care.
[2023-01-13] MEDS: Ibuprofen 600 MG TABLET PO (21:17)
--- NOTE | 2023-01-13 23:18 | PC.NURSE ---
Handoff report given 23:00 to oncoming RN.
--- NOTE | 2023-01-14 01:15 | PC.NURSE ---
Pt awake at the bedside requesting assistance with change of clothes as pt spilled water on herself. New clothes provided and bed linen changed. Pt returned to bed with no issues or concerns. Monitoring ongoing.
--- NOTE | 2023-01-14 02:09 | PC.NURSE ---
Pt sleeping at the bedside in no apparent distress. Breaths are even regular and unlabored with equal chest rises. Monitoring ongoing.
[2023-01-14] MEDS: Acetaminophen 325 MG TABLET 650 MG PO ×3 (04:50→15:36)
--- NOTE | 2023-01-14 04:54 | PC.NURSE ---
Pt reports back pain, 6/10. Medicated with Tylenol. Pt tolerated well.
[2023-01-14 05:10] VITALS: BP 140/69; PULSE 92; RESP 18; TEMP 36.8; O2SAT 93
[2023-01-14] MEDS: Sertraline HCL 25 MG TABLET PO (09:39)
[2023-01-14] MEDS: lisinopriL 5 MG TABLET PO (09:39)
[2023-01-14] MEDS: oxyBUTYnin chloride ER 5 MG TAB.ER.24 PO (09:39)
[2023-01-14] MEDS: Metoprolol Succinate ER 25 MG TAB.ER.24H PO (09:40)
[2023-01-14] MEDS: Pravastatin Sodium 40 MG TABLET PO (09:40)
[2023-01-14] MEDS: Lidocaine 4 % Patch ADH..PATCH 1 PATCH TRANSDERMA (09:41)
--- NOTE | 2023-01-14 11:52 | MHC.CM.PN ---
EMR REVIEWED, CM MET W/PT AND DTR AT BEDSIDE, PT REPORTS SHE LIVES ALONE, HAS A CANE AND WALKER AT HOME FOR DME, DTR [facility] W/NEEDS, PT'S SON KARSTEN TAKES PT TO DR MARION AND DTR WOULD LIKE REFERRAL TO [facility] FOR HOME HEALTH SERVICES, P.T. RECOMMENDING HOME PT, REFERRAL ALSO PLACED AND CM WILL FOLLOW UP W/[facility] ONCE SECURED.
== END 2023-01-14 16:26 | disposition home or self-care (01) ==
PROVIDERS: Emergency Provider Emergency Medicine; PCP Internal Medicine
DX: S32.019A Unspecified fracture of first lumbar vertebra, initial encounter for closed fracture (principal); M54.6 Pain in thoracic spine; R26.2 Difficulty in walking, not elsewhere classified; R07.81 Pleurodynia; W01.0XXA Fall on same level from slipping, tripping and stumbling without subsequent striking against object, initial encounter; Y93.9 Activity, unspecified; Y92.9 Unspecified place or not applicable; Y99.9 Unspecified external cause status; Z79.899 Other long term (current) drug therapy
CPT/HCPCS: 71101; 72072; 72100; 97161; 99285

== ENCOUNTER 2023-02-16 16:18 | Outpatient (AMB) | payer MEDICARE, SELFPAY ==
--- NOTE | 2023-02-16 16:23 | HO.NEPHOV ---
HPI HPI Comments History of Present Illness Details I had the privilege of seeing Zoë in follow-up for hyponatremia and hypertension. She was accompanied by her son. She denies any nausea, vomiting, diarrhea new onset weakness or seizures. She is not very strict about fluid restriction. She has no orthostatic symptoms. She does not have any pedal edema. She is not taking any diuretics. She is on sertraline. She is tolerating lisinopril. She has history of overactive bladder and has seen Urology. [facility] Medical History (Updated 02/19/23 @ 07:49 by Berlin Villalobos MD) Hyponatremia Chronic kidney disease Hypertension OAB (overactive bladder) Surgical History (Updated 02/16/23 @ 16:32 by Megan Gaming MA) H/O breast surgery Family History (Updated 02/16/23 @ 16:33 by Megan Gaming MA) Son Cancer Hypertension Daughter Cancer Social History (Updated 02/16/23 @ 16:32 by Megan Gaming MA) Alcohol intake: never Patient Tobacco Use Status: Former Tobacco user Vital Signs 02/16/23 16:25 Height 5 ft 3 in Weight 111 lb 8 oz BMI 19.7 BP 150/108 H Blood Pressure Location Lt brachial Position Sitting Pulse 89 Pulse Source Pulse Oximeter Pulse Oximetry (%) 98 Oxygen Delivery Method Room Air Physical Exam Vital Signs: Last Vital Signs Pulse 89 02/16/23 16:25 BP 150/108 H 02/16/23 16:25 Pulse Ox 98 02/16/23 16:25 Oxygen Delivery Method Room Air 02/16/23 16:25 BMI result Body Mass Index 19.7 Const General: comfortable and no acute distress Orientation/consciousness: patient oriented x3 HEENT Head: Yes normocephalic Mouth: Normal oral and palatal mucosa present Eyes EOM: EOMs intact bilaterally Neck Neck: Yes supple Resp Auscultation: clear to auscultation bilaterally Cardio Jugular venous distension: no JVD Rate: regular rate GI Palpation (GI): Soft to palpation Auscultation: normal bowel sounds General: Yes no CVA tenderness Back/Spine/Pelvis Back: no CVA tenderness Skin General skin exam: no rashes or lesions noted Neuro General: patient oriented x3 and moves all extremities Extrem General: Yes no pedal edema Assessment & Plan Assessment & Plan (1) Hyponatremia: Code(s): E87.1 - Hypo-osmolality and hyponatremia (2) Hypertension: Code(s): I10 - Essential (primary) hypertension Qualifiers: Hypertension type: primary hypertension Qualified Code(s): I10 - Essential (primary) hypertension Plan Zoë has longstanding hyponatremia and hypertension. Her serum sodium has been stable. She had not been maintaining fluid restriction which I encouraged. She does not have any hyperkalemia or hypotension. Her blood pressure is currently at goal. I counseled about fluid restriction but did not make any medication changes today. I will order cortisol at the next visit. Follow-up lab work ordered. All questions answered. Orders: Orders Electrolytes 02/16/23 E87.1 - Hypo-osmolality and hyponatremia, I10 - Essential (primary) hypertension Blood Urea Nitrogen 02/16/23 E87.1 - Hypo-osmolality and hyponatremia, I10 - Essential (primary) hypertension Creatinine 02/16/23 E87.1 - Hypo-osmolality and hyponatremia, I10 - Essential (primary) hypertension Calcium 02/16/23 E87.1 - Hypo-osmolality and hyponatremia, I10 - Essential (primary) hypertension Coding Level of Care Code Est Pt Level 3 (12921) Diagnoses Hyponatremia E87.1 Primary hypertension I10 Hypertension type: primary hypertension Results Reviewed Nephrology Results: Hgb 13.5 g/dl (12.0-16.0) 10/03/22 WBC 9.5 X10*3/uL (4.8-10.8) 10/03/22 Plt Count 343 X10*3/uL (160-400) 10/03/22 Sodium 132 mmol/L (135-145) L 10/03/22 Potassium 4.0 mmol/L (3.3-5.1) 10/03/22 Chloride 98 mmol/L (96-108) 10/03/22 Carbon Dioxide 24 mmol/L (22-29) 10/03/22 BUN 14 mg/dL (9-16) 10/03/22 Creatinine 0.78 mg/dL (0.5-1.4) 10/03/22 Calcium 9.4 mg/dL (8.4-10.2) 10/03/22
[2023-02-16 16:25] VITALS: BP 150/108; PULSE 89; O2SAT 98; BMI 19.7
== END 2023-02-16 16:52 | disposition home or self-care (01) ==
LOC: HO.HKA 16:18
PROVIDERS: PCP Internal Medicine; Visit Provider Internal Medicine Nephrology
DX: E87.1 Hypo-osmolality and hyponatremia (principal); I10 Essential (primary) hypertension
CPT/HCPCS: 99213

== ENCOUNTER → 2023-02-16 16:18 | Outpatient (BNVA) | payer MEDICARE, SELFPAY | PROVIDERS: PCP Internal Medicine; Visit Provider Internal Medicine Nephrology | DX: E87.1 Hypo-osmolality and hyponatremia (principal); I10 Essential (primary) hypertension | CPT/HCPCS: 99212 ==

== ENCOUNTER 2023-02-20 09:50 | Outpatient (REF) | payer MEDICARE, SELFPAY ==
[2023-02-20 11:20] LABS: Anion Gap 11 (12-20); Blood Urea Nitrogen 15 mg/dL (9-16); Calcium 9.1 mg/dL (8.4-10.2); Carbon Dioxide 26 mmol/L (22-29); Chloride 101 mmol/L (96-108); Estimated Glomerular Filt Rate > 60; Potassium 4.1 mmol/L (3.3-5.1); Sodium 134 mmol/L (135-145)
== END 2023-02-20 09:51 | disposition home or self-care (01) ==
LOC: HO.LAB 09:50
PROVIDERS: PCP Internal Medicine; Visit Provider Internal Medicine Nephrology
DX: E87.1 Hypo-osmolality and hyponatremia (principal); I10 Essential (primary) hypertension
CPT/HCPCS: 36415; 80051; 82310; 82565; 84520

== ENCOUNTER 2023-04-26 06:52 | Outpatient (REF) | payer MEDICARE, SELFPAY ==
[2023-04-26 07:03] LABS: MANUAL DIFF FLAG NO
[2023-04-26 07:52] LABS: Basophils Percent Auto 0.4 % (0-2); Eosinophils Absolute Auto 0.1 X10*3/uL (0.0-0.4); Eosinophils Percent Auto 1.4 % (0-4); Hematocrit 42.5 % (37.0-47.0); Hemoglobin 14.2 g/dl (12.0-16.0); Imm Gran Abs Auto 0.02 X10*3/uL (0.00-0.03); Imm Gran Pct Auto 0.3 % (0.0-0.4); Lymphocytes Absolute Auto 1.8 X10*3/uL (1.2-4.9); Lymphocytes Percent Auto 26.2 % (20-40); Mean Corpuscular HGB Conc 33.4 g/dl (31.0-35.0); Mean Corpuscular Hemoglobin 32.6 pg (27.0-33.0); Mean Corpuscular Volume 97.7 fL (80.0-98.0); Mean Platelet Volume 10.1 fL (9.4-12.3); Monocytes Absolute Auto 0.7 X10*3/uL (0.1-1.2); Neutrophils Absolute Auto 4.3 x10*3/uL (2.0-8.3); Neutrophils Percent Auto 61.7 % (45-73); Platelet Count 294 X10*3/uL (160-400); Red Blood Count 4.35 X10*6/uL (4.20-5.50); Red Cell Distribution Width 12.7 % (11.0-16.0); White Blood Count 6.9 X10*3/uL (4.8-10.8)
[2023-04-26 08:39] LABS: Alanine Aminotransferase 11 U/L (0-31); Albumin Level 4.3 g/dL (3.5-5.0); Alkaline Phosphatase 74 U/L (39-117); Anion Gap 11 (12-20); Aspartate Amino Transferase 18 U/L (5-31); Bilirubin Total 0.7 mg/dL (0.0-1.0); Blood Urea Nitrogen 12 mg/dL (9-16); Calcium 9.6 mg/dL (8.4-10.2); Carbon Dioxide 28 mmol/L (22-29); Chloride 102 mmol/L (96-108); Cholesterol 165 mg/dL (<200); Estimated Glomerular Filt Rate > 60; Glucose Random 102 mg/dL (60-115); HDL Cholesterol 59 mg/dL (>40); LDL Cholesterol Calculated 91 mg/dL (<100); Potassium 3.8 mmol/L (3.3-5.1); Sodium 137 mmol/L (135-145); Total Protein 7.3 g/dL (6.5-8.0); Triglycerides 79 mg/dL (<150)
[2023-04-26 08:56] LABS: Vitamin D 25-OH Total 44.1 ng/mL (>30)
== END 2023-04-26 06:53 | disposition home or self-care (01) ==
LOC: HO.LAB 06:52
PROVIDERS: PCP Internal Medicine; Visit Provider Internal Medicine
DX: E78.00 Pure hypercholesterolemia, unspecified (principal); E87.1 Hypo-osmolality and hyponatremia; F32.5 Major depressive disorder, single episode, in full remission; M81.8 Other osteoporosis without current pathological fracture; Z68.1 Body mass index [BMI] 19.9 or less, adult
CPT/HCPCS: 36415; 80053; 80061; 82306; 85025

== ENCOUNTER 2023-06-29 14:35 | Outpatient (REF) | payer MEDICARE, SELFPAY ==
--- NOTE | ~2023-06-29 | US_ITS ---
EXAMINATION: MM DIAGNOSTIC DIGITAL BREAST TOMOSYNTHESIS, LEFT US BREAST LIMITED, LEFT MAMMOGRAPHY: CLINICAL INFORMATION: 87-year-old female status post right mastectomy with TRAM flap repair for breast CA. Here for diagnostic left breast mammography and ultrasound for follow-up of a small complicated cyst at the 3:00 axis left breast, 2 cm from the nipple. COMPARISON: Mammography: 11/21/2022, 03/29/2022, 03/08/2022, and 03/07/2021. Ultrasound dated 11/21/2022, and 03/29/2022. TECHNIQUE: Digital left breast tomosynthesis is performed in both the craniocaudal and mediolateral oblique views along with computer-aided detection (CAD). Synthesized 2D images are generated from the tomosynthesis. FINDINGS: There are scattered areas of fibroglandular density (ACR BI-RADS breast composition Category b). There is a similar appearing oval circumscribed subcentimeter mass in the 3:00 axis of the left breast, mid to anterior depth. There are a few scattered benign calcifications, unchanged. There are no masses, suspicious calcifications which are grouped, or developing areas of architectural distortion. The parenchymal pattern is stable from prior left breast exams. There are no skin or axillary abnormalities. ULTRASOUND: CLINICAL INFORMATION: Follow-up mildly complicated 2 x 2 x 3 mm cyst in the left breast at the 3:00 axis. COMPARISON: 11/21/2022, 03/29/2022. TECHNIQUE: Targeted sonographic evaluation was performed using a high frequency linear transducer. Left breast was interrogated from the 2-4 o'clock axis to include the 3:00 finding. Selected archived documentation. FINDINGS: LEFT BREAST: There is a mixture of fatty and fibroglandular tissue. No suspicious mass is seen. There is no pathologic acoustic shadowing. The previously seen 2 x 2 x 3 mm mildly complicated cyst is slightly smaller, both visually and when measuring similarly, currently measuring approximately 2 x 2 x 2 mm. There is again low-level internal dirty echoes, and suboptimal through transmission (may be secondary to small size). It again lies within a dense region of fibrous Petey's ligaments. No new abnormalities are noted. No suspicious abnormalities are noted. US/US breast LT limited mamm only IMPRESSION: There are no findings in the left breast suspicious for malignancy. Mildly complicated cyst left breast 3:00 axis is slightly smaller both visually and when measured similarly, currently measuring 2 x 2 x 2 mm. This finding favors benignity and no further follow-up is recommended. There are stable left breast benign findings. Recommend the patient return to routine annual left breast screening. OVERALL ASSESSMENT: Mammography: BI-RADS 2 - Benign Findings Ultrasound: BI-RADS 2 - Benign Findings RECOMMENDATION: 1 year F/U Results were provided to the patient at time of visit by the technologist. This patient's information was entered into a reminder system with a target due date for their next mammogram.
== END 2023-06-29 14:36 | disposition home or self-care (01) ==
LOC: HO.MAMMO 14:35
PROVIDERS: PCP Internal Medicine; Visit Provider Internal Medicine
DX: R92.2 Inconclusive mammogram (principal)
CPT/HCPCS: 76642; 77061; 77065

== ENCOUNTER → 2023-06-29 15:00 | Outpatient (BNV) | payer MEDICARE, SELFPAY | PROVIDERS: PCP Internal Medicine; Visit Provider Radiology Diagnostic Radiology | DX: R92.1 Mammographic calcification found on diagnostic imaging of breast (principal); N63.25 Unspecified lump in the left breast, overlapping quadrants | CPT/HCPCS: 76642; 77065; G0279 ==

== ENCOUNTER 2023-11-02 10:51 | Emergency (ER) | payer MEDICARE, SELFPAY ==
--- NOTE | ~2023-11-02 | CT_ITS ---
EXAMINATION: CT HEAD WITHOUT CONTRAST CT CERVICAL SPINE WITHOUT CONTRAST CLINICAL INFORMATION: Fall. COMPARISON: None TECHNIQUE: Contiguous axial imaging was performed from the skull base to vertex without intravenous administration of contrast. Contiguous axial imaging was performed from the upper chest through the skull base without intravenous administration of contrast. Coronal and sagittal reformats were obtained at the acquisition workstation. This CT examination was performed using dose optimization techniques as appropriate, variously including the following: *Automated exposure control *Adjustment of mA and/or kV according to patient size (this includes techniques or standardized protocols for targeted exams where dose is matched to indication/reason for exam; i.e. 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 There is no evidence of acute intracranial hemorrhage or edematous territorial infarction. Scattered hypoattenuation in the periventricular and deep white matter are consistent with moderate microangiopathy. Coronado-white matter differentiation is preserved. Proportional prominence of the ventricles and sulcal spaces. Mineralization of the bilateral basal ganglia. No evidence for obstructive hydrocephalus. No abnormal mass effect or midline shift. No extra-axial fluid collections. No acute soft tissue or osseous abnormalities. 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 The mastoid air cells and paranasal sinuses are clear. Cervical Spine: The atlantooccipital and atlantoaxial articulations remain well aligned. Trace retrolisthesis of C4 on C5 and C5 on C6, most likely degenerative in nature. Otherwise, there is anatomic alignment of the vertebral bodies and posterior elements. Age-indeterminate mild superior endplate deformity of the T2 vertebral body. Moderate multilevel cervical spondylosis with intervertebral disc height loss, tiny marginal osteophytes and multilevel uncal/facet hypertrophy. There is no prevertebral soft tissue swelling. The thyroid gland and remaining cervical soft tissues are normal in appearance. Incidentally noted 3 mm solid nodule in the right upper lobe (12:300), possibly located within the lumen of a bronchus suggestive of mucous secretions. Chronic appearing left lateral third, fourth and fifth rib fractures. CT/CT cervical spine wo IV con IMPRESSION: 1. No acute intracranial hemorrhage or edematous territorial infarction. 2. Age-indeterminate mild superior endplate deformity of the T2 vertebral body. Correlate with point tenderness. 3. 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 Further evaluation with MRI of the brain as clinically warranted. 4. Incidentally noted 3 mm solid nodule in the right upper lobe, possibly within the lumen of a bronchus which favors intrabronchial secretion, though a true parenchymal nodule is not excluded. According to the UPDATED 2017 Fleischner Society recommendations, the advised follow-up imaging for nodules <6mm in the upper lobes is not necessarily required in low-risk patients. In high-risk patients with a nodule in the upper lobe and/or demonstrating suspicious morphology, an optional CT follow-up at 12 months may be obtained. If stable at 12 months, no further follow-up is recommended. Electronically signed by: Josee Staton MD 11/02/2023 02:52 PM EDT
--- NOTE | ~2023-11-02 | XR_ITS ---
EXAMINATION: XR ELBOW, RIGHT CLINICAL INFORMATION: Fall, pain. COMPARISON: None available. TECHNIQUE: Two views of the right elbow. FINDINGS: Distracted, displaced olecranon fracture with significant surrounding soft tissue swelling and small joint effusions. No additional fractures. XR/XR elbow RT 2V IMPRESSION: Distracted olecranon fracture with surrounding soft tissue swelling and small joint effusions. Electronically signed by: Josee Staton MD 11/02/2023 12:40 PM EDT
--- NOTE | 2023-11-02 10:55 | ED_ITS ---
HPI - Fall General Chief Complaint: Fall Stated Complaint: FALL WITH HEADSTRIKE - LOC Time Seen by Provider: 11/02/23 11:13 Source: patient and EMS Mode of arrival: EMS Limitations: no limitations History of Present Illness HPI Narrative: Patient is an 88-year-old female who presents emergency department via EMS for evaluation. She reports mechanical trip and fall on the curb while attempting to go into her apartment. She was using her cane at this time and she was with her niece. There was frontal /right-sided head strike but no reported loss of consciousness. Denies use of anticoagulants or known coagulation disorders. Reports a mild headache. Denies neck pain. Denies dizziness lightheadedness chest pain or shortness of breath. Has pain to the right elbow 12/12. Denies numbness or tingling to the extremity. Related Data Home Medications ?Medication ?Instructions ?Recorded ?Confirmed cholecalciferol (vitamin D3) 1,250 1,250 mcg PO QWEEK 06/02/22 01/12/23 mcg (50,000 unit) capsule metoprolol succinate 25 mg 25 mg PO DAILY 06/02/22 01/12/23 tablet,extended release 24 hr pravastatin 40 mg tablet 40 mg PO DAILY 06/02/22 01/12/23 lisinopril 5 mg tablet 5 mg PO DAILY 01/12/23 01/12/23 sertraline 25 mg tablet 25 mg PO DAILY 01/12/23 01/12/23 cyanocobalamin (vitamin B-12) 1,000 mcg PO DAILY 02/16/23 1,000 mcg tablet,extended release lidocaine 5 % topical patch 1 patch topical DAILY PRN 02/16/23 (Lidoderm) Previous Rx's ?Medication ?Instructions ?Recorded oxybutynin chloride 5 mg 5 mg PO DAILY 90 days #90 tabs 05/31/21 tablet,extended release 24 hr Allergies Allergy/AdvReac Type Severity Reaction Status Date / Time No Known Allergies Allergy Verified 02/16/23 16:28 [No Known Allergies*] bee sting Allergy Unknown swelling Uncoded 11/02/23 11:05 Review of Systems 2 Review of Systems: Yes all other systems are reviewed and are negative PMFSH Past Medical History Attestation statement: The following information was validated with the patient. Source: old records reviewed Medical History Hyponatremia Chronic kidney disease Hypertension OAB (overactive bladder) Surgical History H/O breast surgery Family History Family History (Updated 02/16/23 @ 16:33 by Megan Gaming MA) Son Cancer Hypertension Daughter Cancer Social History Social History (Updated 02/16/23 @ 16:32 by Megan Gaming MA) Alcohol intake: former Patient Tobacco Use Status: Former Tobacco user Smoked in Last 30 Days: No Use of substances other than those prescribed or required for medical reasons: No Advance Directives: No Advance Directives Information Provided: No Physical Exam 2 Vital Signs: Vital Signs: Last Vital Signs Temp 98.2 F 11/03/23 06:00 Pulse 69 11/03/23 06:00 Resp 16 11/03/23 06:00 BP 165/94 H 11/03/23 06:00 Pulse Ox 98 11/03/23 06:00 O2 Del Method Room Air 11/03/23 06:00 BMI result Body Mass Index 23.0 Appearance: Alert.?Oriented to person, place and time. No acute distress.?Normal affect. Head: Normocephalic, atraumatic. No deformity. No hematoma. Eyes: Pupils equal, round and reactive to light.? EOMI. No nystagmus. ENT: Pharynx normal.?? Neck: Normal inspection.? Neck supple.? No midline cervical spine tenderness, step-offs, deformities. Hard cervical spine collar in place. ? CVS: Heart sounds normal. Normal heart rate and rhythm.? Pulses normal.?? Respiratory: No respiratory distress.? Lung sounds clear to auscultation bilaterally?? Abdomen: Soft and non-tender. Normoactive bowel sounds. Skin: Skin warm and dry.? Normal skin color.? Extremities: No extremity edema. Right elbow Held in 90 degree flexion as point of most comfort. Evolving ecchymosis to the olecranon. 2+ radial pulse Neuro: Moves all extremities spontaneously. Sensation intact bilaterally. CN II- XII intact. No focal neuro deficits. Course Course Course Narrative: 11/03/23 07:40 Physician observation continued, no overnight events reported by nursing. PT eval pending, CM following for disposition. Reevaluation(s) Reevaluation #1: Had a conversation with patient and her granddaughter who was currently at bedside regarding her fracture. Discussed immobilization of her right arm. She does state that when she is outside of the house she typically uses a cane for ambulation she uses this in the left hand. However at home she typically uses a walker. She also states at this time that she had a fall yesterday at home she was attempting to pull the drapes closed and subsequently lost her balance and fell. I have concern about her safety at home alone due to her unsteady gait and immobilization of the right arm. Discussed physical therapy evaluation/case management involvement for potential STR are placement. Patient family are agreeable. Reevaluation #2: Patient noted to have urinary tract infection, denies symptoms. Covering with cefuroxime pending culture Time: 16:41 Medications Administered Generic Name Dose Route Start Last Admin Trade Name Freq PRN Reason Stop Dose Admin Acetaminophen 650 mg 11/02/23 17:00 11/03/23 05:10 Acetaminophen 325 Mg Tablet PO 650 mg Q6H CHAPARRITA Administration Cefuroxime Axetil 250 mg 11/02/23 21:00 11/02/23 21:20 Cefuroxime Axetil 250 Mg Tablet PO 11/09/23 09:01 250 mg BID CHAPARRITA Administration Discontinued Medications Generic Name Dose Route Start Last Admin Trade Name Freq PRN Reason Stop Dose Admin Acetaminophen 975 mg 11/02/23 11:02 11/02/23 11:08 Acetaminophen 325 Mg Tablet PO 11/02/23 11:03 975 mg ONCE ONE Administration Oxycodone HCl 5 mg 11/02/23 12:41 11/02/23 12:54 Oxycodone Hcl Immed Release 5 Mg Tablet PO 11/02/23 12:42 5 mg ONCE ONE Administration Tramadol HCl 50 mg 11/02/23 11:02 11/02/23 11:08 Tramadol Hcl 50 Mg Tablet PO 11/02/23 11:03 50 mg ONCE ONE Administration Procedures Orthopedic Splinting/Casting Injury #1: Side: right Upper Extremity Injury Location: upper arm Upper Extremity Immobilizer: posterior splint Other Orthopedic Equipment: other (sling) Medical Decision Making Medical Decision Making MDM Narrative: Patient is an 88-year-old female with past medical history of hypertension, overactive bladder, hyponatremia, CKD who presents emergency department for evaluation after mechanical trip and fall with resultant right elbow pain. Held at 90 degrees flexion, vomiting ecchymosis, neurovascularly intact distally, XR being obtained to exclude fracture/dislocation. There is positive head strike but no loss consciousness, no obvious injuries, no focal neurological deficits, however given age and mechanism of fall plan to obtain CT of the head and cervical spine to exclude ICH fracture, subluxation. Patient to receive acetaminophen and tramadol for pain management at this time. Differential Diagnosis Differential Diagnoses: The differential diagnosis associated with the presentation includes (See narrative above) Admission/Observation Consideration of admission/observation: Escalation of care including admission/observation considered Consult Healthcare Provider Management of the patient was discussed with: Premium Note Interest Calculator Clerk Orthopedics- Rose Mary Zazueta PA : Agrees with plan of care for posterior long-arm splint, sling, and outpatient follow-up Lab Data CBC is without leukocytosis or anemia. She has chronic hyponatremia, she is supposed to be following a fluid restricted diet as per Nephrology but she has not usually compliant with this. No hyperkalemia or hypotension. 11/02/23 13:47 11/02/23 13:47 Labs: Lab Results 11/02/23 11/02/23 Range/Units 13:47 16:26 WBC 10.8 (4.8-10.8) X10*3/uL RBC 4.24 (4.20-5.50) X10*6/uL Hgb 14.2 (12.0-16.0) g/dl Hct 39.9 (37.0-47.0) % MCV 94.1 (80.0-98.0) fL MCH 33.5 H (27.0-33.0) pg MCHC 35.6 H (31.0-35.0) g/dl RDW 13.0 (11.0-16.0) % Plt Count 289 (160-400) X10*3/uL MPV 9.8 (9.4-12.3) fL Immature Gran % (Auto) 0.5 H (0.0-0.4) % Neut % (Auto) 85.2 H (45-73) % Lymph % (Auto) 8.2 L (20-40) % [place] % (Auto) 5.2 (2-11) % Eos % (Auto) 0.4 (0-4) % Baso % (Auto) 0.5 (0-2) % Lymph # (Auto) 0.9 L (1.2-4.9) X10*3/uL [place] # (Auto) 0.6 (0.1-1.2) X10*3/uL Eos # (Auto) 0.0 (0.0-0.4) X10*3/uL Baso # (Auto) 0.1 (0.0-0.2) X10*3/uL Abs Immat Gran (auto) 0.05 H (0.00-0.03) X10*3/uL Absolute Neuts (auto) 9.3 H (2.0-8.3) x10*3/uL Absolute Nucleated RBC 0.000 (0.0-0.012) X10*3/uL Nucleated RBC % (auto) 0.0 (0.0-0.2) /100WBC Sodium 130 L (135-145) mmol/L Potassium 3.9 (3.3-5.1) mmol/L Chloride 97 (96-108) mmol/L Carbon Dioxide 27 (22-29) mmol/L Anion Gap 10 L (12-20) BUN 9 (9-16) mg/dL Creatinine 0.74 (0.5-1.4) mg/dL Estim Creat Clear Calc 45.1 Estimated GFR > 60 Random Glucose 119 H (60-115) mg/dL Calcium 9.3 (8.4-10.2) mg/dL Total Bilirubin 0.5 (0.0-1.0) mg/dL AST 20 (5-31) U/L ALT 15 (0-31) U/L Alkaline Phosphatase 78 (39-117) U/L Total Protein 6.8 (6.5-8.0) g/dL Albumin 4.1 (3.5-5.0) g/dL Urine Color Yellow Urine Appearance Clear Urine pH 8.0 (5.0-9.0) Ur Specific [place] 1.010 (1.005-1.025) Urine Protein Negative (Neg-Trace) mg/dL Urine Glucose (UA) Negative (Negative) mg/dL Urine Ketones Trace (Negative) mg/dL Urine Blood Negative (Negative) Urine Nitrite Positive H (Negative) Ur Leukocyte Esterase Trace H (Negative) Urine RBC 0-2 (0-2) /HPF Urine WBC 0-5 (0-5) /HPF Ur Squamous Epith Cells 0-2 (0-2) /HPF Urine Bacteria 4+ (None Seen) Hyaline Casts 0-2 (0-2) /LPF COVID-19 (TESFAYE) Negative (Negative) COVID-19 Clin Com See Note Independent Interpretation I performed an independent interpretation of an: Plain X-Ray (Acute fracture of the right olecranon) Radiology Impression Discussion of test interpretation with radiology: I have reviewed the radiologist's reading. Radiologist Impression: XR/XR elbow RT 2V IMPRESSION: Distracted olecranon fracture with surrounding soft tissue swelling and small joint effusions. Independent Historian Clinical information obtained from an independent historian. History obtained from or confirmed by: EMS External Record Review External record reviewed: Outpatient record Prescription Management I considered prescription management with: Pain Medication Discharge Plan Discharge Clinical Impression: Closed olecranon fracture, Urinary tract infection Patient Disposition: Still a Patient Prescriptions: No Action sertraline 25 mg tablet 25 mg PO DAILY lisinopril 5 mg tablet 5 mg PO DAILY pravastatin 40 mg tablet 40 mg PO DAILY cholecalciferol (vitamin D3) 1,250 mcg (50,000 unit) capsule 1,250 mcg PO QWEEK metoprolol succinate 25 mg tablet extended release 24 hr 25 mg PO DAILY oxybutynin chloride 5 mg tablet extended release 24 hr 5 mg PO DAILY 90 Days Qty: 90 1RF lidocaine [Lidoderm] 5 % adhesive patch,medicated 1 patch topical DAILY PRN Rx Instructions: leave on most painful area for up to 12 hrs cyanocobalamin (vitamin B-12) 1,000 mcg tablet extended release 1,000 mcg PO DAILY Print Language: Andorran
[2023-11-02 10:57] VITALS: BP 172/108; PULSE 68; O2SAT 100
[2023-11-02 11:04] VITALS: BP 176/68; PULSE 62; RESP 18; TEMP 36.6; O2SAT 97; BMI 23.0
[2023-11-02] MEDS: traMADoL HCL 50 MG TABLET PO (11:08)
[2023-11-02] MEDS: Acetaminophen 325 MG TABLET 975 MG PO (11:08)
[2023-11-02 11:13] VITALS: BP 176/68; PULSE 62; RESP 18; TEMP 37; O2SAT 96
[2023-11-02] MEDS: oxyCODONE HCl Immed Release 5 MG TABLET PO (12:54)
--- NOTE | 2023-11-02 13:06 | PC.NURSE ---
Patient reports she uses a cane when she goes out to run errands but at homes mostly uses a walker or no assistive device at all. Patient reports also fell yesterday when trying to close the blinds and was on the floor for a little. Patient agreeable to PT consult to assess for safety going home independently
[2023-11-02 13:53] LABS: MANUAL DIFF FLAG NO
[2023-11-02 13:54] LABS: Basophils Absolute Auto 0.1 X10*3/uL (0.0-0.2); Basophils Percent Auto 0.5 % (0-2); Eosinophils Percent Auto 0.4 % (0-4); Hematocrit 39.9 % (37.0-47.0); Hemoglobin 14.2 g/dl (12.0-16.0); Imm Gran Abs Auto 0.05 X10*3/uL (0.00-0.03); Imm Gran Pct Auto 0.5 % (0.0-0.4); Lymphocytes Absolute Auto 0.9 X10*3/uL (1.2-4.9); Lymphocytes Percent Auto 8.2 % (20-40); Mean Corpuscular HGB Conc 35.6 g/dl (31.0-35.0); Mean Corpuscular Hemoglobin 33.5 pg (27.0-33.0); Mean Corpuscular Volume 94.1 fL (80.0-98.0); Mean Platelet Volume 9.8 fL (9.4-12.3); Monocytes Absolute Auto 0.6 X10*3/uL (0.1-1.2); Monocytes Percent Auto 5.2 % (2-11); Neutrophils Absolute Auto 9.3 x10*3/uL (2.0-8.3); Neutrophils Percent Auto 85.2 % (45-73); Platelet Count 289 X10*3/uL (160-400); Red Blood Count 4.24 X10*6/uL (4.20-5.50); White Blood Count 10.8 X10*3/uL (4.8-10.8)
[2023-11-02 14:11] LABS: Alanine Aminotransferase 15 U/L (0-31); Albumin Level 4.1 g/dL (3.5-5.0); Alkaline Phosphatase 78 U/L (39-117); Anion Gap 10 (12-20); Aspartate Amino Transferase 20 U/L (5-31); Bilirubin Total 0.5 mg/dL (0.0-1.0); Blood Urea Nitrogen 9 mg/dL (9-16); Calcium 9.3 mg/dL (8.4-10.2); Carbon Dioxide 27 mmol/L (22-29); Chloride 97 mmol/L (96-108); Creatinine Clr Calc Pharmacy 45.1; Estimated Glomerular Filt Rate > 60; Glucose Random 119 mg/dL (60-115); Potassium 3.9 mmol/L (3.3-5.1); Sodium 130 mmol/L (135-145); Total Protein 6.8 g/dL (6.5-8.0)
[2023-11-02 14:28] LABS: COVID-19 Test Negative (Negative); IDNOW Serial# 152EDE1D
--- NOTE | 2023-11-02 16:14 | PC.NURSE ---
Splint and sling placed by provider, tolerated well . Case management at bedside
[2023-11-02 16:27] VITALS: BP 162/72; PULSE 68; RESP 16; TEMP 36.4; O2SAT 97
--- NOTE | 2023-11-02 16:29 | PC.NURSE ---
Report given to RN in overflow
[2023-11-02 16:33] LABS: Appearance Urine Clear; Color Urine Yellow; Glucose Urine UA Negative (Negative); Leukocyte Esterase Urine Trace (Negative); Nitrite Urine Positive (Negative); UMIC TRIGGER UACC YES; Urine Blood Negative (Negative); Urine Ketones Trace mg/dL (Negative); Urine Protein Negative (Neg-Trace)
[2023-11-02 16:36] LABS: Bacteria Urine 4+ (None Seen); Hyaline Casts Urine 0-2 /LPF (0-2); RBC Urine 0-2 /HPF (0-2); Squamous Epithelial Cell Urine 0-2 /HPF (0-2); UACC Culture Trigger YES; WBC Urine 0-5 /HPF (0-5)
[2023-11-02] MEDS: Acetaminophen 325 MG TABLET 650 MG PO ×2 (17:46→21:20)
--- NOTE | 2023-11-02 18:14 | MHC.CM.ED ---
CM met with patient and daughter/HCP Zina Kincaid ([phone]). Pt lives alone in senior housing. Uses a cane and a walker. 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 Daughter provides meals also. Pt is somewhat forgetful. Pt fell and has a FX R elbow. It has been splinted and placed in a sling. PT is pending. Ortho has been consulted. Will see patient as an outpatient. Daughter has requested [facility]. Daughter has already called [facility] for an appointment 11/05 at 3:15. Disc given of Xrays and CT scan. Clinicals faxed to [facility] at ([phone]). Will place local referrals with PT pending. Pt has [employer]erred. Expect patient will be here through the holiday weekend due to insurance auth. Daughter aware. CM will follow for discharge planning.
[2023-11-02] MEDS: cefuroxime axetiL 250 MG TABLET PO (21:20)
[2023-11-02 22:00] VITALS: BP 160/85; PULSE 69; RESP 12; TEMP 36.7; O2SAT 95
[2023-11-03] MEDS: Acetaminophen 325 MG TABLET 650 MG PO ×2 (05:10→12:23)
[2023-11-03 06:00] VITALS: BP 165/94; PULSE 69; RESP 16; TEMP 36.8; O2SAT 98
--- NOTE | 2023-11-03 07:52 | MHC.EDTECH ---
patient given breakfast and bed pad changed. patient wanting to rest at this time. breakfast at bedside.
[2023-11-03 08:53] VITALS: BP 154/85; PULSE 81; RESP 18; TEMP 36.6; O2SAT 97
[2023-11-03] MEDS: cefuroxime axetiL 250 MG TABLET PO (09:23)
--- NOTE | 2023-11-03 14:20 | MHC.CM.PN ---
CM SPOKE WITH BOTH PT AND HER DAUGHTER DIANE AND HAVE ACCEPTED THE BED AT [facility] IN [place]. PER THE CENTER, THEY ARE ABLE TO UTILIZE THE GOOD KITTY AUTH FROM [facility] OVER THE WEEKEND. PT WILL DC VIA BLS TRANSPORT VIA PIA AT 4:45 P.M. RN/PROVIDER MADE AWARE. DAUGHTER DIANE UPDATED ON DEPARTURE TIME VIA VM.
[2023-11-03 16:15] VITALS: BP 167/92; PULSE 82; RESP 16; TEMP 36.7; O2SAT 98
--- NOTE | 2023-11-03 16:46 | PHA.MEDREC ---
Pharmacy Consult ? Medication Reconciliation Pharmacy has completed the medication reconciliation. Spoke to patient's daughter Zina who was at patient's home and was able to look at the med vials and confirmed medication list. Daughter said patient still has a vial of sertraline 25 mg that was filled in march so she doesn't think patient is taking it. She thinks patient last took her blood pressure meds yesterday but doesn't know when she last took her other meds.
== END 2023-11-03 16:59 ==
PROVIDERS: Nurse Practitioner Family; Emergency Provider Emergency Medicine; PCP Internal Medicine
DX: S52.021A Displaced fracture of olecranon process without intraarticular extension of right ulna, initial encounter for closed fracture (principal); W10.1XXA Fall (on)(from) sidewalk curb, initial encounter; N39.0 Urinary tract infection, site not specified; I12.9 Hypertensive chronic kidney disease with stage 1 through stage 4 chronic kidney disease, or unspecified chronic kidney disease; N18.9 Chronic kidney disease, unspecified; Z11.52 Encounter for screening for COVID-19; Z79.02 Long term (current) use of antithrombotics/antiplatelets; Z79.899 Other long term (current) drug therapy; Y93.01 Activity, walking, marching and hiking; Y92.480 Sidewalk as the place of occurrence of the external cause; Y99.9 Unspecified external cause status
CPT/HCPCS: 36415; 70450; 72125; 73070; 80053; 81001; 85025; 87086; 87088; 87186; 87635; 97162; 99284; 99285

== ENCOUNTER 2024-05-01 16:10 | Outpatient (REF) | payer MEDICARE, SELFPAY ==
[2024-05-01 16:31] LABS: MANUAL DIFF FLAG NO
[2024-05-01 17:06] LABS: Basophils Percent Auto 0.5 % (0-2); Eosinophils Absolute Auto 0.1 X10*3/uL (0.0-0.4); Eosinophils Percent Auto 0.6 % (0-4); Hematocrit 41.1 % (37.0-47.0); Hemoglobin 14.6 g/dl (12.0-16.0); Imm Gran Abs Auto 0.03 X10*3/uL (0.00-0.03); Imm Gran Pct Auto 0.4 % (0.0-0.4); Lymphocytes Absolute Auto 1.6 X10*3/uL (1.2-4.9); Lymphocytes Percent Auto 19.8 % (20-40); Mean Corpuscular HGB Conc 35.5 g/dl (31.0-35.0); Mean Corpuscular Hemoglobin 34.2 pg (27.0-33.0); Mean Corpuscular Volume 96.3 fL (80.0-98.0); Mean Platelet Volume 10.6 fL (9.4-12.3); Monocytes Absolute Auto 0.7 X10*3/uL (0.1-1.2); Monocytes Percent Auto 8.5 % (2-11); Neutrophils Absolute Auto 5.7 x10*3/uL (2.0-8.3); Neutrophils Percent Auto 70.2 % (45-73); Platelet Count 288 X10*3/uL (160-400); Red Blood Count 4.27 X10*6/uL (4.20-5.50); Red Cell Distribution Width 13.3 % (11.0-16.0); White Blood Count 8.1 X10*3/uL (4.8-10.8)
[2024-05-01 17:39] LABS: Alanine Aminotransferase 14 U/L (0-31); Albumin Level 4.4 g/dL (3.5-5.0); Alkaline Phosphatase 66 U/L (39-117); Anion Gap 12 (12-20); Aspartate Amino Transferase 24 U/L (5-31); Bilirubin Total 0.7 mg/dL (0.0-1.0); Blood Urea Nitrogen 10 mg/dL (9-16); Calcium 9.5 mg/dL (8.4-10.2); Carbon Dioxide 26 mmol/L (22-29); Chloride 99 mmol/L (96-108); Cholesterol 151 mg/dL (<200); Estimated Glomerular Filt Rate > 60; Glucose Random 91 mg/dL (60-115); HDL Cholesterol 57 mg/dL (>40); LDL Cholesterol Calculated 82 mg/dL (<100); Potassium 3.6 mmol/L (3.3-5.1); Sodium 133 mmol/L (135-145); Total Protein 7.8 g/dL (6.5-8.0); Triglycerides 63 mg/dL (<150)
[2024-05-01 17:54] LABS: Vitamin D 25-OH Total 29.4 ng/mL (>30)
[2024-05-01 18:07] LABS: Folate 10.7 ng/mL (> or = 4.0); Vitamin B12 1146 pg/mL (200-900)
--- OUTSIDE RECORDS SUMMARY | 2024-05-01 19:18 | XMS_ITS | Clinical Summary ---
Author Organization [facility] it Address [address] [place] [address] Care Team Providers Care Recreation Therapy Teacher Name Role Phone Unavailable Primary Care Provider Unavailabl e Social History Tobacco Use Types Packs/Day Years Used Date Smoking Tobacco: Never Assessed Comments Unknown Sex and Gender Information Value Date Recorded Sex Assigned at Not on file Legal Sex Female 6:32 AM EST Gender Identity Not on file Sexual Orientation Not on file Plan of Treatment Health Maintenance Due Date Last Done Comments DTaP,Tdap,and Td Vaccines (1 - Tdap) 1954 Pneumococcal Vaccine: 50+ Ye ars (1 of 1 - PCV) 09/25/1987 Zoster Vaccines (1 of 2) 09/25/1987 RSV Immunization Patients 60 + Years Old (1 - 1-dose 75+ series) 2012 Depression Screening 02/05/2022 Falls Risk Assessment 02/05/2022 Osteoporosis Screening (Bone Density Screening) 02/05/2022 Social Influencers of Health Screening 02/05/2022 COVID-19 Vaccine (2023-2 5 season) 2023 Influenza Vaccine (#1) 2023 HIB Vaccines Aged Out No longer eligi ble based on patient's age to complete this topic HPV Vaccines Aged Out No longer eligi ble based on patient's age to complete this topic Hepatitis A Vaccines Aged Out No long er eligible based on patient's age to complete this topic Hepatitis B Vaccines Aged Out No long er eligible based on patient's age to complete this topic IPV Vaccines Aged Out No longer eligi ble based on patient's age to complete this topic MMR Vaccines Aged Out No longer eligi ble based on patient's age to complete this topic Meningococcal ACWY Vaccine Aged Out N o longer eligible based on patient's age to complete this topic Meningococcal B Vacine Aged Out No lo nger eligible based on patient's age to complete this topic RSV Immunization Patients Un addison 20 months Aged Out No longer eligible b ased on patient's age to complete this topic Varicella Vaccines Aged Out No longer eligible based on patient's age to complete this topic
--- OUTSIDE RECORDS SUMMARY | 2024-05-01 19:18 | XMS_ITS | Patient Health Record ---
Author Organization Randell Segundo III, MD Address [address] [place] [address] Care Team Providers Care Asbestos Coverer Name Role Phone Lesvia WILDER, [facility] Primary Care Provider Randell Rivera [facility] [phone] Allergies Allergen (clinical drug ingredient) Drug/Non Drug Allergy documented on EMR Reaction Allergy Type Onset Date Status Bee Sting Unknown Allergy Active Reason For Referral No Information Medications Medication SIG (Take, Route, Frequency, Duration) Notes Start Date End Date Status Lisinopril 5 MG TAKE 1 TABLET BY CORRY TH EVERY 12 HOURS Oral Active Pravastatin Sodium 40 MG 1 tablet Orally Once a day Active Meloxicam 5 MG 1 capsule Orally Once a day Active Gabapentin 100 MG TAKE ONE CAPSULE BY MOUTH THREE TIMES A DAY FOR 14 DAYS for 14 Active B-[address] ONE TABLET UND ER THE TONGUE EVERY DAY Sublingual Acti ve Immunizations Vaccine Route Administration Date Status Comme nts Influenza Unknown 12/19/2013 Administered Social History Tobacco Use: Social History Observation Description Date Details (start date - stop date) Former Smoker NA - NA Tobacco Use/Smoking Question Answer Notes Patient is a former smoker How long has it been since you last smoked? > 10 years Additional Findings: Tobacco Non-User Ex-cigaret te smoker Alcohol Screen Question Answer Notes Did you have a drink contain ing alcohol in the past year? Yes How often did you have a dri nk containing alcohol in the past year? Monthly or less (1 point) How many drinks did you have on a typical day when you were drinking in the past year? 1 or 2 drinks (0 point) How often did you have 6 or more drinks on one occasion in the past year? Never (0 point) Points 1 Interpretation Negative Problems Problem Type SNOMED Code ICD Code Onset Dates Problem Status W/U Status Risk Notes Problem 4300414 Former smoker (Z87.891) Active confirmed She is highly motivated not to smoke and we discussed means of maintaining abstinence in times of stress. Problem 018331234 Weight loss (R63.4) Active confirmed She has lost so me weight and her body mass index is now 19. We discussed nutrition today. Problem 095131394 Underweight (R63.6) Active confirmed Her body mass index is now in the normal range and she reports a good appetite. Problem Major depression, single episode (12127236) Major depressive disorder, single episode, unspecified (F32.9) Active confirmed Her depression has not recurred. She is now 87 years old, living at home under the care of her daughter. Problem 05327745 Depressive disorder, not elsewhere classified (F32.9) Active confirmed Her depression is stable well controlled. She pursues activities of daily living without impairment. Problem 958946154 Malignant neoplasm of breast (female) (C50.919) Active confirmed She has had no new primaary or recurrence of the breast cancer. Since her last visit to this this. Problem 014349932 Macular degeneration (senile) of retina (H35.30) Active confirmed Her vision is stable and I urged her to continue her visits to the optic school office assistant. Problem 603866760 Chronic insomnia (F51.04) Active confirmed She had many questions about what she should do about sleeping better. I strongly advised her against sleeping pills and recommended that she go to bed at the same time every night get up at the same time every morning. I did recommend a trial of melatonin 3 mg daily. I also discussed the use of diphenhydramine with her. Problem 501466343 Urinary incontinence (R32) Active confirmed She continues t o have occasional urinary incontinence. I have recommended she takes the oxybutynin daily in the morning and limit the fluid she drinks before leaving home. I also recommended she discuss with her urologist with her injections of collagen in the urinary sphincter will be of any use. 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 2001 mastectomy right breast with reconstruct estrella/Dr. Troy 1998
--- OUTSIDE RECORDS SUMMARY | 2024-05-01 19:18 | XMS_ITS | Patient Health Record ---
Author Organization [facility] [place] randal Lim Address [address] [place] [address] Care Team Providers Care Rotary Derrick Operator Name Role Phone Carlyn Lakhani Primary Care Provider Unavailab bandar Stephy King Unavailable [phone] Carlyn Lakhani Unavailable Unavailable Allergies No Known Allergies Reason For Referral No Information Medications Medication SIG (Take, Route, Frequency, Duration) Notes Start Date End Date Status Vitamin B12 Active Pravastatin Sodium A ctive oxyBUTYnin Chloride ER 10 MG 1 tablet Orally Once a day Active Vitamin B Complex Ac tive Lisinopril 5 MG 1 tablet Orally Once a day for 30 day(s) Active Pravastatin Sodium 10 MG 1 tablet Orally Once a day Not-Taking oxyBUTYnin Chloride 5 MG 2 tablet Orally Twice a day Not-Taking Immunizations Vaccine Route Administration Date Status Comme nts COVID-19 Moderna Vaccine Unknown 04/26/2020 Administered Second Dose: 05/24/2020 Social History Tobacco Use: Social History Observation Description Date Details (start date - stop date) Never Smoker NA - NA Tobacco Use/Smoking Question Answer Notes Are you a: nonsmoker Alcohol Screen Question Answer Notes Did you have a drink containing alcohol in the p ast year? No Points 0 Interpretation Negative Tobacco use other than smoking: Question Answer Notes Are you an other tobacco user? No Problems Problem Type SNOMED Code ICD Code Onset Dates Problem Status W/U Status Risk Notes Problem Acquired hammer toe of right foot (6185482925501 105) Other hammer toe(s) (acquired), right foot (M20.41) Active confirmed Problem Acquired hallux valgus (34971549) Hallux valgus (acquired), left foot (M20.12) Active confirmed Problem Acquired hammer toe of left foot (5419823927632 103) Other hammer toe(s) (acquired), left foot (M20.42) Active confirmed Problem Ulcer of toe (229043752) Non-pressure chronic ulcer of other part of right foot limited to breakdown of skin (L97.511) Active confirmed Problem Ulcer of toe (063115546) Non-pressure chronic ulcer of other part of left foot limited to breakdown of skin (L97.521) Active confirmed Problem Acquired hallux valgus (19103193) Hallux valgus (acquired), right foot (M20.11) Active confirmed Plan Of Treatment Pending Test Test Name Order Date 09344-Vcwmfdis Plate 11/13/2013 02952-Zjijusvh Plate 06/28/2020 38842-Kgigelde Plate Each Additional 11405- Debride <25 sq cm 11/13/2013 49340- Debride <25 sq cm 07/19/2020 12016 I&D ABSCESS- SIMPLE,SINGLE 014 Insurance Providers Payer Name Payer Address Payer Phone Subscriber Number Group Number Insured Name Patient Relationship to Insured Coverage Start Date Coverage End Date [employer] Preferred [address] [place] [address] [phone] [id number] Zoë Oliver Self - patient is the insured Medical (General) History Medical History History ICD Code Cancer Cataracts Depression Measles Surgical History Surgery Date(Month/Year) breast surgery 1998
--- OUTSIDE RECORDS SUMMARY | 2024-05-01 19:18 | XMS_ITS ---
Author Organization Randell Segundo III, MD Address [address] [place] [address] [address] [place] [place] [address] Care Team Providers Care Magistrate Name Role Phone Lesvia WILDER, [facility] Primary Care Provider Randell Rivera [phone] Allergies Allergen (clinical drug ingredient) Drug/Non Drug Allergy documented on EMR Reaction Allergy Type Onset Date Status Bee Sting Unknown Allergy Active REASON FOR VISIT L1 compression fracture, Acute pain, History of breast cancer, Chronic insomnia Medications Medication SIG (Take, Route, Frequency, Duration) Notes Start Date End Date Status Lisinopril 5 MG TAKE 1 TABLET BY CORRY TH EVERY 12 HOURS Oral Active Pravastatin Sodium 40 MG 1 tablet Orally Once a day Active Meloxicam 5 MG 1 capsule Orally Once a day Active Gabapentin 100 MG 1 capsule Orally thr ee times a day for 14 days 02/08/2023 Active B-[address] ONE TABLET UND ER THE TONGUE EVERY DAY Sublingual Acti ve Social History Tobacco Use: Social History Observation Description Date Details (start date - stop date) Former Smoker NA - NA Tobacco Use/Smoking Question Answer Notes Patient is a former smoker How long has it been since you last smoked? > 10 years Additional Findings: Tobacco Non-User Ex-cigaret te smoker Problems Problem Type SNOMED Code ICD Code Onset Dates Problem Status W/U Status Risk Notes Problem Major depression, single episode (43286127) Major depressive disorder, single episode, unspecified (F32.9) Active confirmed Her depression has not recurred. She is now 87 years old, living at home under the care of her daughter. Vital Signs Height 63 in 02/08/2023 Weight 110 lbs 02/08/2023 BMI 19.48 kg/m2 02/08/2023 Encounters Encounter Location Date Provider Diagnosis Randell Segundo III, MD [address] [place] [address] [place] [address] 02/08/2023 Randell Segundo Malignant neoplasm o f breast (female) C50.919 ; Major depressive disorder, single episode, unspecified F32.9 ; Former smoker Z87.891 and Compression fracture of L1 vertebra, initial encounter S32.010A Assessments Encounter Date Diagnosis (ICD Code) Assessment Notes Treatment Notes Treatment Clinical Notes 02/08/2023 Malignant neoplasm of breast (female) (ICD-10 - C50.919) She has had no new primaary or recurrence of the breast cancer. Since her last visit to this this. 02/08/2023 Major depressive disorder, single episode, unspecified (ICD-10 - F32.9) Her depression has not recurred. She is now 87 years old, living at home under the care of her daughter. 02/08/2023 Former smoker (ICD-10 - Z87.891) She is highly motivated not to smoke and we discussed means of maintaining abstinence in times of stress. 02/08/2023 Compression fracture of L1 vertebra, initial encounter (ICD-10 - S32.010A) This diagnosis was made on x-ray done recently. She was given a prescription of gabapentin for pain. She was instructed to speak to her primary care physician about the possibility of vertebroplasty. Plan Of Treatment Medication Medication Name Sig Start Date Stop Date Notes Lisinopril 5 MG TAKE 1 TABLET BY CORRY TH EVERY 12 HOURS Oral Pravastatin Sodium 40 MG 1 tablet Orally Once a day Meloxicam 5 MG 1 capsule Orally Once a day Gabapentin 100 MG 1 capsule Orally thr ee times a day for 14 days 02/08/2023 B-[address] ONE TABLET UND ER THE TONGUE EVERY DAY Sublingual Next Appt Details Follow Up: As needed, Reason : Office visit Progress Notes * Zoë OLIVER DDOB:1935 (87 yo F)Acc No.[id number]:02/08/2023 Patient:?Zoë Oliver Provider:?Randell Segundo MD :1935???Age:87 Y???Sex:Female D ate:02/08/2023 Address:[address] [place] [address] [address] [place] Pcp:Carlyn Lakhani MD Subjective: * Chief Complaints: * ???L1 compression fractureAc juventino painHistory of breast cancerChronic insomnia * HPI: ???v:? This telehealth visit took place over 15 minutes with the patient at home and in my office. She gave consent for billing. She has been under the care of primary care recently. She has had a compression fracture at L1 which is now causing severe pain. I have given her a prescription for 100 mg of gabapentin 3 times a day. 4 weeks until her primary care physician, returns from a vacation. She has had no relapse of the breast cancer. She is cared for at home by her daughter. * Medical History:? * Surgical History:?mastectomy right breast with reconstruction/Dr. Troy 1999[facility] O.[facility] stay surgery RE: Bladder 07/2017 * Hospitalization/Major Diagno stic Procedure:?Denies Past Hospitalization * Family History:?Father: dece ased 74 yrs, CAD.?Mother: 80 yrs.?3 sister(s) . 2 son(s) , 2 daughter(s) - healthy. .? An aunt has breast cancer. Her grandmother had gastric cancer. Demetrice lives in [facility]. Cely lives in [place]. Mario is in [place] and Feroz lives in [place]. There are 6 grandchildren. All are well. * Social History:?Tobacco Use:?Tobacco Use/Smoking?Patient is a?former smoker ?How long has it been since you last smoked??> 10 years ?Additional Findings: Tobacco Non-User?Ex-cigarette smoker ???She is and has 2 daughters and 2 sons, 6 grandchildren. 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 She stopped smoking more than ten years ago. * Medications:?TakingMeloxicam 5 MG Capsule 1 capsule Orally Once a dayPravastatin Sodium 40 MG Tablet 1 tablet Orally Once a dayLisinopril 5 MG Tablet TAKE 1 TABLET BY MOUTH EVERY 12 HOURS Oral B-12 [address] ONE TABLET UNDER THE TONGUE EVERY DAY Sublingual Taking Meloxicam 5 MG Capsule 1 capsule Orally Once a dayTaking Pravastatin Sodium 40 MG Tablet 1 tablet Orally Once a dayTaking Lisinopril 5 MG Tablet TAKE 1 TABLET BY MOUTH EVERY 12 HOURS Oral Taking B-12 [address] ONE TABLET UNDER THE TONGUE EVERY DAY Sublingual DiscontinuedPravastatin Sodium 40 MG Tablet 1 tablet Orally Once a dayMedication List reviewed and reconciled with the patientDiscontinued Pravastatin Sodium 40 MG Tablet 1 tablet Orally Once a dayMedication List reviewed and reconciled with the patient * Allergies:?Bee Stingno[Aller gies Verified] Objective: * Vitals:?Ht: 63, Wt:110, BMI: 19.48, Wt-k.9. Assessment: * Assessment: 1.?Malignant neoplasm of seema ast (female) - C50.919, She has had no new primaary or recurrence of the breast cancer. Since her last visit to this this.?2.?Major depressive disorder, single episode, unspecified - F32.9, Her depression has not recurred. She is now 87 years old, living at home under the care of her daughter.?3.?Former smoker - Z87.891, She is highly motivated not to smoke and we discussed means of maintaining abstinence in times of stress.?4.?Compression fracture of L1 vertebra, initial encounter - S32.010A, This diagnosis was made on x-ray done recently. She was given a prescription of gabapentin for pain. She was instructed to speak to her primary care physician about the possibility of vertebroplasty.? Plan: * Treatment: 2.?Others? Continue Meloxicam Capsule, 5 MG, 1 capsule, Orally, Once a day;?Continue B-12 Tablet Sublingual, 2500 MCG, PLACE ONE TABLET UNDER THE TONGUE EVERY DAY, Sublingual.?? * Procedure Codes:?83419 PHONE E/M BY PHYS 11-20 MIN * Preventive Medicine:? ??Counseling:?Care goal follow-up plan:?Counseling for abnormal BMI given?Yes ?Below Normal BMI Follow-up?Dietary education for weight gain, Dietary management education, guidance, and counseling, Feeding regime, Lifestyle education regarding diet, Nutrition / feeding management, Prescribed diet education, Special diet education, Intervention, Order not done: Medical or Other reason not done ?Smoking/Tobacco Use?Patient counseled on the dangers of tobacco use and urged to quit.?02/08/2023 * Follow Up:?As needed (Reason : Office visit) * Images: * Sign off status: Completed true * Provider:?Randell Segundo MD Date:?09/2022 Generated for Kaylie joshi/Shu/eTeddiesmitting on:?05/01/2024 07:18 PM EST
--- OUTSIDE RECORDS SUMMARY | 2024-05-01 19:19 | XMS_ITS | Clinical Summary ---
Author Organization [facility] Address [address] [place] [address] Phone Care Team Providers Care User Support Specialist Name Role Phone Carlyn Lakhani MD Primary Care Provider [phone] Allergies No known active allergies Medications oxybutynin XL (DITROPAN-XL) 5 MG 24 hr tablet Take 1 tablet by mouth 1 (one) time each day Active Cyanocobalamin [address] 1 tablet under the tongue 1 (one) time each day Active pravastatin (PRAVACHOL) 40 MG tablet Take 40 mg by mouth 1 (one) time each day 11/22/2021 Active lisinopril 5 MG tablet Take 5 mg by mouth 1 (one) time each day 11/03/2021 Active ergocalciferol 1.25 MG (64546 UT) capsule Take 50,000 Units by mouth 10/24/2021 Active Active Problems Problem Noted Date Diagnosed Date Chronic insomnia 02/22/2023 02/22/2023 Degenerative disorder of macula 02/22/2023 02/22/2023 Depressive disorder 02/22/2023 02/22/2023 Ex-smoker 02/22/2023 02/22/2023 Malignant neoplasm of breast (female), unspecifi ed 02/22/2023 02/22/2023 Urinary incontinence 02/22/2023 02/22/2023 Weight loss 02/22/2023 02/22/2023 COVID-19 02/28/2022 02/22/2023 Overview (02/22/2023): Problem added by Discern Expert Underweight 01/18/2022 Hypo-osmolality and hyponatremia 01/17/2022 Resolved Problems Problem Noted Date Diagnosed Date Resolved Date Acquired hallux valgus 01/17/202201/17 Acquired hammer toe of left foot 01/17/2022 01/17/2022 Acquired hammer toe of right foot 01/17/2022 01/17/2022 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 01/17/2022 01/17/2022 Immunizations Name Administration Dates Next Due Moderna SARS-COV-2 06/12/2021,,01/04/2021,08/25/2020,05/14/2020,,04/16/2020 Social History Tobacco Use Types Packs/Day Years Used Date Smoking Tobacco: Never Passive Smoke Exposure: Never Smokeless Tobacco: Never Tobacco Cessation:Counseling Given: No Alcohol Use Standard Drinks/Week Comments Never 0 (1 standard drink = 0.6 oz pur e alcohol) Comments Unknown Sex and Gender Information Value Date Recorded Sex Assigned at Not on file Legal Sex Female 8:59 AM EDT Gender Identity Not on file Sexual Orientation Not on file Last Filed Vital Signs Vital Sign Reading Time Taken Comments Blood Pressure 150/80 08/23/2022 4:02 PM EDT Pulse 73 08/23/2022 4:02 PM EDT Temperature - - Respiratory Rate - - Oxygen Saturation 98% 08/23/2022 4:02 PM EDT Inhaled Oxygen Concentration - - Weight 47.1 kg (103 lb 12.8 oz) 08/23/2022 4:02 PM EDT Height - - Body Mass Index - - Plan of Treatment Health Maintenance Due Date Last Done Comments Pneumococcal Vaccine: 65+ Ye ars (1 of 2 - PCV) 09/25/1941 Influenza Vaccine (#1) 2023 Hepatitis B Vaccine Aged Out No longe r eligible based on patient's age to complete this topic Insurance [employer] Care Teams User Support Specialist Relationship Specialty Start Date End Date Carlyn Lakhani MD [address] [place] [address] [address] [place], [place] PCP - General Internal Medicine 10/25/21
== END 2024-05-01 16:11 | disposition home or self-care (01) ==
LOC: HO.LAB 16:10
PROVIDERS: PCP Internal Medicine; Visit Provider Internal Medicine
DX: E78.00 Pure hypercholesterolemia, unspecified (principal); F02.80 Dementia in other diseases classified elsewhere, unspecified severity, without behavioral disturbance, psychotic disturbance, mood disturbance, and anxiety; F32.2 Major depressive disorder, single episode, severe without psychotic features; I10 Essential (primary) hypertension; M81.8 Other osteoporosis without current pathological fracture; Z85.3 Personal history of malignant neoplasm of breast
CPT/HCPCS: 36415; 80053; 80061; 82306; 82607; 82746; 85025